=== PATIENT | male | born 1970 | race Caucasian/White ===

== ENCOUNTER 2019-01-26 23:18 | Inpatient (IN) | payer BC ==
--- NOTE | 2019-01-27 00:33 | C.PDOC ---
History Of Present Illness Patient presents with sudden onset right flank pain radiating to the back and groin. Denies fever, chills, nausea, or vomiting. Patient was diaphoretic at first. Time Seen by Provider: 01/27/19 00:32 Chief Complaint (Nursing): Chest Pain History Per: Patient History/Exam Limitations: no limitations Onset/Duration Of Symptoms: Hrs, Sudden Onset Current Symptoms Are (Timing): Still Present Severity: Severe Pain Scale Rating Of: 8 Quality: Sharp Associated Symptoms: Diaphoresis Modifying Factors: None Exacerbating Factors: None Alleviating Factors: None Recent travel outside of the [place] States: No Additional History Per: Family Past Medical History Reviewed: Historical Data, Nursing Documentation, Vital Signs Vital Signs: Last Vital Signs Temp 97.6 F 01/26/19 23:42 Pulse 61 01/26/19 23:54 Resp 22 01/26/19 23:42 BP 104/64 01/26/19 23:54 Pulse Ox 98 01/26/19 23:42 Family History: States: No Known Family Hx - Social History Hx Alcohol Use: No Hx Substance Use: No - Immunization History Hx Tetanus Toxoid Vaccination: No Hx Influenza Vaccination: No Hx Pneumococcal Vaccination: No Review Of Systems Constitutional: Positive for: Sweats. Negative for: Fever, Chills Cardiovascular: Negative for: Chest Pain, Palpitations Respiratory: Negative for: Cough, Shortness of Breath Gastrointestinal: Negative for: Nausea, Vomiting Genitourinary: Negative for: Dysuria Musculoskeletal: Positive for: Other (Right flank pain) Skin: Negative for: Rash, Jaundice Neurological: Negative for: Weakness, Numbness Psych: Negative for: Anxiety Physical Exam - Physical Exam Appears: Non-toxic Skin: Warm, Dry, No Jaundice Head: Normacephalic Eye(s): bilateral: Normal Inspection Oral Mucosa: Moist Neck: Trachea Midline, Supple Chest: Symmetrical, No Tenderness Cardiovascular: Rhythm Regular Respiratory: No Rales, No Rhonchi, No Wheezing Gastrointestinal/Abdominal: Soft, Tenderness (RUQ), No Guarding, No Rebound Back: CVA Tenderness (Right) Extremity: No Tenderness Extremity: Bilateral: Atraumatic Neurological/Psych: Oriented x3 Gait: Steady ED Course And Treatment - Laboratory Results Result Diagrams: 01/27/19 01:08 01/27/19 01:08 ECG: Interpreted By Me, Viewed By Me ECG Rhythm: Sinus Rhythm (60), Nonspecific Changes O2 Sat by Pulse Oximetry: 98 Pulse Ox Interpretation: Normal - Radiology CXR: Interpreted by Me, Viewed By Me Progress Note: Patient feels comfortable after pain meds. spoke with surgery - will come and see the pt Disposition Discussed With DrYobani: Elaine Keenan Comment: accepted the pt on his service and took over the care at 2:51 AM Doctor Will See Patient In The: ED Counseled Patient/Family Regarding: Studies Performed, Diagnosis - Disposition Disposition: HOSPITALIZED Disposition Time: 02:51 Condition: FAIR Forms: [facility] (Armenian) - POA Present On Arrival: None - Clinical Impression Clinical Impression: Acute cholecystitis - Scribe Statement The provider has reviewed the documentation as recorded by the Scribshoaib Louis All medical record entries made by the Scribe were at my direction and personally dictated by me. I have reviewed the chart and agree that the record accurately reflects my personal performance of the history, physical exam, medical decision making, and the department course for this patient. I have also personally directed, reviewed, and agree with the discharge instructions and disposition. Decision To Admit - Pt Status Changed To: Hospital Disposition Of: Inpatient - Admit Certification Admit to Inpatient:: After my assessment, the patient will require hospitalization for at least two midnights. This is because of the severity of symptoms shown, intensity of services needed, and/or the medical risk in this patient being treated as an outpatient. - InPatient: Physician Admission Certification: I certify that this patient requires 2 or more midnights of care for the following reason:: After my assessment, the patient will require hospitalization for at least two midnights. This is because of the severity of symptoms shown, intensity of services needed, and/or the medical risk in this patient being treated as an outpatient. - . Bed Request Type: Regular Admitting Physician: Elaine Keenan Patient Diagnosis: Acute cholecystitis
[2019-01-27] MEDS ORDERED: Lidocaine 112 MG in Sodium Chloride 0.9% 100 ML IV STA (00:37)
[2019-01-27 01:17] LABS: BASO # 0.1 K/uL (0.0-0.2); BASO % 0.5 % (0.0-2.0); EOS # 0.2 K/uL (0.0-0.7); HEMOGLOBIN 15.5 g/dL (12.0-18.0); LYMPH # 4.1 K/uL (1.0-4.3); LYMPH % 35.3 % (20.0-40.0); MEAN CELL VOLUME 89.4 fL (80.0-94.0); MEAN CORPUSCULAR HEMOGLOBIN 30.1 pg (27.0-31.0); MEAN CORPUSCULAR HGB CONC 33.6 g/dL (33.0-37.0); MONO # 0.6 K/uL (0.0-0.8); MONO % 5.4 % (0.0-10.0); NEUT # 6.5 K/uL (1.8-7.0); NEUT % 56.8 % (50.0-75.0); NRBC % 0.1 % (0.0-2.0); RBC 5.15 Mil/uL (4.40-5.90); RED CELL DISTRIBUTION WIDTH 13.2 % (11.5-14.5); WHITE BLOOD COUNT 11.5 K/uL (4.8-10.8)
[2019-01-27 01:33] LABS: ALB/GLOB RATIO 1.4 (1.0-2.1); ALBUMIN 4.4 g/dL (3.5-5.0); ALT/SGPT 28 U/L (21-72); AST/SGOT 45 U/L (17-59); BLOOD UREA NITROGEN 15 mg/dL (9-20); CALCIUM 9.7 mg/dl (8.6-10.4); GFR NON-AFRICAN AMERICAN > 60; LIPASE 150 U/L (23-300)
[2019-01-27] MEDS ORDERED: Piperacillin/Tazobact 3.375 gm 100 ML IVPB STA (02:52)
[2019-01-27] MEDS ORDERED: Piperacillin/Tazobact 3.375 gm 100 ML IVPB ONE (03:03)
[2019-01-27] MEDS ORDERED: Potassium Chloride 10 mEq ER Tab PO STA (03:33)
[2019-01-27] MEDS ORDERED: Potassium Chloride 20 mEq ER Tab PO ONE (03:39)
[2019-01-27] MEDS ORDERED: HYDROmorphone 0.5 mg/0.5 ml ISec IVP PRN (04:42)
--- NOTE | 2019-01-27 04:50 | CP.PCM.CON ---
<Coy Thomas - Last Filed: 01/27/19 08:28> History of Present Illness - History of Present Illness History of Present Illness: Surgery Consult Note- Dr. Bullard Reason for Consult: Acute Cholecystitis 48M pmhx significant for nephrolithiasis,, HLD presents to [facility] [place] ED w/ Intermitted RUQ abdominal pain radiating to the back over the last year. overnight patient had severe pain that would not subside and subsequently went to the ER. during workup patient was found to have a stone in the distal CBD. States associated nausea, diaphoresis, chills. Denies vomiting, changes in urinary or bowel habits. PMH: stated above PSH: Jos Munoz Surgery ALL: NKDA SocialHx: denies tobacco, etoh , recreational drug use Review of Systems - Review of Systems All systems: reviewed and no additional remarkable complaints except - Constitutional Constitutional: As Per HPI Past Patient History - Past Medical History & Family History Past Medical History?: Yes - Past Social History Smoking Status: Never Smoked - CARDIAC Hx Hypercholesterolemia: Yes - MUSCULOSKELETAL/RHEUMATOLOGICAL Hx Falls: No - PSYCHIATRIC Hx Substance Use: No - SURGICAL HISTORY Hx Surgeries: No - ANESTHESIA Hx Anesthesia: No Hx Anesthesia Reactions: No Hx Malignant Hyperthermia: No Has any member of the family had a problem w/ anesthesia?: No Meds Allergies/Adverse Reactions: Allergies Allergy/AdvReac Type Severity Reaction Status Date / Time ibuprofen Allergy Mild Verified 01/26/19 23:47 Physical Exam - Constitutional Appears: Non-toxic, No Acute Distress - Head Exam Head Exam: ATRAUMATIC - Eye Exam Eye Exam: EOMI. absent: Scleral icterus - ENT Exam ENT Exam: Mucous Membranes Moist - Respiratory Exam Respiratory Exam: NORMAL BREATHING PATTERN. absent: Accessory Muscle Use, Respiratory Distress - Cardiovascular Exam Cardiovascular Exam: REGULAR RHYTHM. absent: Bradycardia, Tachycardia - GI/Abdominal Exam GI & Abdominal Exam: Soft, Tenderness (TTP RUQ. + Fowler's sign). absent: Distended, Firm, Guarding, Hernia - Back Exam Back exam: absent: CVA tenderness (L) - Neurological Exam Neurological exam: Alert, Oriented x3 - Psychiatric Exam Psychiatric exam: Normal Affect - Skin Skin Exam: Intact, Warm Results - Vital Signs Recent Vital Signs: Last Vital Signs Temp 97.9 F 01/27/19 03:37 Pulse 67 01/27/19 03:37 Resp 18 01/27/19 03:37 BP 113/68 01/27/19 03:37 Pulse Ox 98 01/27/19 03:37 - Labs Result Diagrams: 01/27/19 01:08 01/27/19 01:08 Labs: Laboratory Results - last 24 hr 01/27/19 01/27/19 01:08 01:08 WBC 11.5 H RBC 5.15 Hgb 15.5 Hct 46.1 MCV 89.4 MCH 30.1 MCHC 33.6 RDW 13.2 Plt Count 260 MPV 8.0 Neut % (Auto) 56.8 Lymph % (Auto) 35.3 Bartholomew % (Auto) 5.4 Eos % (Auto) 2.0 Baso % (Auto) 0.5 Neut # (Auto) 6.5 Lymph # (Auto) 4.1 Bartholomew # (Auto) 0.6 Eos # (Auto) 0.2 Baso # (Auto) 0.1 Sodium 140 Potassium 3.3 L Chloride 102 Carbon Dioxide 27 Anion Gap 14 BUN 15 Creatinine 0.9 Est GFR ( Amer) > 60 Est GFR (Non-Af Amer) > 60 Random Glucose 125 H Calcium 9.7 Total Bilirubin 0.5 AST 45 ALT 28 Alkaline Phosphatase 76 Total Protein 7.5 Albumin 4.4 Globulin 3.0 Albumin/Globulin Ratio 1.4 Lipase 150 Assessment & Plan - Assessment and Plan (Free Text) Assessment: 48M w/ Choledocholithiasis Plan: - IVAbx - NPO - IVF - pain control PRN - c/s GI; all recs appreciated - plan for Ultrasound MRCP - further recs per Dr. Juan Miguel Thomas PGY2 <Glenn Bullard B - Last Filed: 02/01/19 18:17> Meds - Medications Medications: Current Medications Acetaminophen (Tylenol 325mg Tab) 650 mg PO Q6 PRN PRN Reason: Fever >100.4 F Hydromorphone HCl (Dilaudid) 0.5 mg IVP Q4H PRN PRN Reason: Pain, moderate (4-7) Meropenem 1 gm/ Sodium (Chloride) 100 mls @ 100 mls/hr IVPB Q8H [facility]; Protocol Last Admin: 02/01/19 15:31 Dose: 100 mls/hr Lactated Ringer's (Lactated Ringer's) 1,000 mls @ 100 mls/hr IV .Q10H [facility] Last Admin: 02/01/19 14:39 Dose: Not Given Ondansetron HCl (Zofran Inj) 4 mg IVP Q6H PRN PRN Reason: Nausea/Vomiting Last Admin: 01/27/19 17:09 Dose: 4 mg Potassium Chloride (Klor-Con 10) 20 meq PO ONCE PRN PRN Reason: low K Last Admin: 02/01/19 15:07 Dose: 20 meq Saccharomyces Boulardii (Florastor) 250 mg PO BID STEVIE Last Admin: 02/01/19 17:16 Dose: 250 mg Results - Vital Signs Recent Vital Signs: Last Vital Signs Temp 98.6 F 02/01/19 15:00 Pulse 77 02/01/19 15:00 Resp 20 02/01/19 15:00 BP 138/86 02/01/19 15:00 Pulse Ox 96 02/01/19 15:00 - Labs Result Diagrams: 02/01/19 08:52 02/01/19 08:52 Labs: Laboratory Results - last 24 hr 02/01/19 02/01/19 08:52 08:52 WBC 7.2 RBC 4.99 Hgb 14.8 Hct 44.9 MCV 90.0 MCH 29.7 MCHC 33.0 RDW 13.6 Plt Count 260 MPV 7.8 Neut % (Auto) 70.7 Lymph % (Auto) 23.1 Bartholomew % (Auto) 5.1 Eos % (Auto) 0.6 Baso % (Auto) 0.5 Neut # (Auto) 5.1 Lymph # (Auto) 1.7 Bartholomew # (Auto) 0.4 Eos # (Auto) 0.0 Baso # (Auto) 0.0 Sodium 138 Potassium 3.5 L Chloride 102 Carbon Dioxide 25 Anion Gap 14 BUN 10 Creatinine 0.7 L Est GFR ( Amer) > 60 Est GFR (Non-Af Amer) > 60 Random Glucose 181 H D Calcium 9.1 Phosphorus 2.4 L Magnesium 2.1 Total Bilirubin 2.1 H AST 136 H D ALT 376 H Alkaline Phosphatase 159 H Total Protein 7.2 Albumin 4.3 Globulin 2.9 Albumin/Globulin Ratio 1.5 Attending/Attestation - Attestation I have personally seen and examined this patient.: Yes I have fully participated in the care of the patient.: Yes I have reviewed all pertinent clinical information: Yes Notes (Text): Pt was seen and examined at bedside Agree with above note and assessment Pt with Abdominal Pain and nausea Abdomen: Soft, NT, ND Pt is s/p ERCP today for CBD stone Labs and radiology reviewed Ass: Cholelithiasis with CBD stone Plan : Repeat LFTS in am NPO, IVF c.w current mx IV antibiotics Plan d.w pt in detail Risk and benefit explained in detail.
[2019-01-27] MEDS: Piperacillin/Tazobact 3.375 GM in Sodium Chloride 100 ML IVPB SCH ×4 (05:46→21:48)
--- NOTE | 2019-01-27 08:41 | CP.PCM.CON ---
<Irma Keenan - Last Filed: 01/27/19 08:33> History of Present Illness - History of Present Illness History of Present Illness: PGY5 GI Initial Consult Lewis Preston is a 48M w/ hx of HL who presents to the ER with complaints of RUQ and right flank pain. Pt states that he has been having infrequent RUQ and right flank pain for 1 year. Previously the episodes were short lived and less painful. He states that the duration prior to this episode was usually less than an hour. He notes that his pain prior to arrival at the Ed was 9 out of 10. He denies any aggravating or alleviating factors. He denies any nausea or vomiting. Denies any fever, chill, diaphoresis, or jaundice. No recent weightloss or travel. Pt notes having a colonoscopy 6 years prior but does not recall indication or findings. CT in the ER revealed possible ~7.6 obstructing distal CBD stone. PMHx:HL PSHx: right bunion Social Hx: Denies smoking, illicit drugsl social ETOH Family hx: Denies any hx of GI related malig ROS: 12 point ROS conducted, neg other than above Past Patient History - Past Medical History & Family History Past Medical History?: Yes - Past Social History Smoking Status: Never Smoked - CARDIAC Hx Hypercholesterolemia: Yes - MUSCULOSKELETAL/RHEUMATOLOGICAL Hx Falls: No - PSYCHIATRIC Hx Substance Use: No - SURGICAL HISTORY Hx Surgeries: No - ANESTHESIA Hx Anesthesia: No Hx Anesthesia Reactions: No Hx Malignant Hyperthermia: No Has any member of the family had a problem w/ anesthesia?: No Meds Allergies/Adverse Reactions: Allergies Allergy/AdvReac Type Severity Reaction Status Date / Time ibuprofen Allergy Mild Verified 01/26/19 23:47 - Medications Medications: Current Medications Acetaminophen (Tylenol 325mg Tab) 650 mg PO Q6 PRN PRN Reason: Fever >100.4 F Hydromorphone HCl (Dilaudid) 0.5 mg IVP Q4H PRN PRN Reason: Pain, moderate (4-7) Piperacillin Sod/Tazobactam (Sod 3.375 gm/ Sodium Chloride) 100 mls @ 200 mls/hr IVPB Q6H [facility]; Protocol Last Admin: 01/27/19 05:46 Dose: Not Given Physical Exam - Constitutional Appears: Non-toxic, No Acute Distress - Head Exam Head Exam: ATRAUMATIC, NORMOCEPHALIC - Eye Exam Eye Exam: Normal appearance - ENT Exam ENT Exam: Mucous Membranes Moist, Normal Exam - Neck Exam Neck exam: Positive for: Normal Inspection - Respiratory Exam Respiratory Exam: Clear to Auscultation Bilateral, NORMAL BREATHING PATTERN. absent: Rales, Rhonchi, Wheezes, Respiratory Distress - Cardiovascular Exam Cardiovascular Exam: REGULAR RHYTHM, +S1, +S2 - GI/Abdominal Exam GI & Abdominal Exam: Normal Bowel Sounds, Soft, Tenderness (right RUQ and fl ank). absent: Diminished Bowel Sounds, Distended, Firm, Guarding, Hernia, Rebound, Rigid - Neurological Exam Neurological exam: Alert, Oriented x3 - Psychiatric Exam Psychiatric exam: Normal Affect, Normal Mood - Skin Skin Exam: Dry, Intact, Normal Color, Warm Results - Vital Signs Recent Vital Signs: Last Vital Signs Temp 98.0 F 01/27/19 07:10 Pulse 75 01/27/19 07:10 Resp 20 01/27/19 07:10 BP 144/78 01/27/19 07:10 Pulse Ox 97 01/27/19 07:10 - Labs Result Diagrams: 01/27/19 01:08 01/27/19 01:08 Labs: Laboratory Results - last 24 hr 01/27/19 01/27/19 01/27/19 01:08 01:08 07:11 WBC 11.5 H RBC 5.15 Hgb 15.5 Hct 46.1 MCV 89.4 MCH 30.1 MCHC 33.6 RDW 13.2 Plt Count 260 MPV 8.0 Neut % (Auto) 56.8 Lymph % (Auto) 35.3 [place] % (Auto) 5.4 Eos % (Auto) 2.0 Baso % (Auto) 0.5 Neut # (Auto) 6.5 Lymph # (Auto) 4.1 [place] # (Auto) 0.6 Eos # (Auto) 0.2 Baso # (Auto) 0.1 PT 11.0 INR 1.0 APTT 32 Sodium 140 Potassium 3.3 L Chloride 102 Carbon Dioxide 27 Anion Gap 14 BUN 15 Creatinine 0.9 Est GFR ( Amer) > 60 Est GFR (Non-Af Amer) > 60 Random Glucose 125 H Calcium 9.7 Total Bilirubin 0.5 AST 45 ALT 28 Alkaline Phosphatase 76 Total Protein 7.5 Albumin 4.4 Globulin 3.0 Albumin/Globulin Ratio 1.4 Lipase 150 Assessment & Plan - Assessment and Plan (Free Text) Assessment: Lewis Preston is a 48M w/ hx of HL who presents with RUQ and right flank pain: CT abd revealed possible distal CBD stone ~7.6mm Acute Cholecystitis Questionable obstructive CBD stone Biliary colic? hx of HL Plan: -recommend U/S at this time -MRCP pending -LFTs are WNL -continue zosyn 3.375g q 6hrs -blood cultures pending -surgery on board -will determine need for ERCP based on MRCP findings -NPO for now, after MRCP can start clears if pt is asymptomatic D/W Dr. Madden <Robert Madden - Last Filed: 01/27/19 11:26> Meds - Medications Medications: Current Medications Acetaminophen (Tylenol 325mg Tab) 650 mg PO Q6 PRN PRN Reason: Fever >100.4 F Hydromorphone HCl (Dilaudid) 0.5 mg IVP Q4H PRN PRN Reason: Pain, moderate (4-7) Piperacillin Sod/Tazobactam (Sod 3.375 gm/ Sodium Chloride) 100 mls @ 200 mls/hr IVPB Q6H [facility]; Protocol Last Admin: 01/27/19 11:07 Dose: 200 mls/hr Results - Vital Signs Recent Vital Signs: Last Vital Signs Temp 98.0 F 01/27/19 07:10 Pulse 75 01/27/19 07:10 Resp 20 01/27/19 07:10 BP 144/78 01/27/19 07:10 Pulse Ox 97 01/27/19 07:10 - Labs Result Diagrams: 01/27/19 01:08 01/27/19 01:08 Labs: Laboratory Results - last 24 hr 01/27/19 01/27/19 01/27/19 01:08 01:08 07:11 WBC 11.5 H RBC 5.15 Hgb 15.5 Hct 46.1 MCV 89.4 MCH 30.1 MCHC 33.6 RDW 13.2 Plt Count 260 MPV 8.0 Neut % (Auto) 56.8 Lymph % (Auto) 35.3 [place] % (Auto) 5.4 Eos % (Auto) 2.0 Baso % (Auto) 0.5 Neut # (Auto) 6.5 Lymph # (Auto) 4.1 [place] # (Auto) 0.6 Eos # (Auto) 0.2 Baso # (Auto) 0.1 PT 11.0 INR 1.0 APTT 32 Sodium 140 Potassium 3.3 L Chloride 102 Carbon Dioxide 27 Anion Gap 14 BUN 15 Creatinine 0.9 Est GFR ( Amer) > 60 Est GFR (Non-Af Amer) > 60 Random Glucose 125 H Calcium 9.7 Total Bilirubin 0.5 AST 45 ALT 28 Alkaline Phosphatase 76 Total Protein 7.5 Albumin 4.4 Globulin 3.0 Albumin/Globulin Ratio 1.4 Lipase 150 Attending/Attestation - Attestation I have personally seen and examined this patient.: Yes I have fully participated in the care of the patient.: Yes I have reviewed all pertinent clinical information: Yes Notes (Text): 01/27/19 11:22 I have seen and examined patient with GI fellow. Agree with above documentation with the following additions. In brief, this is a 48 year old male with history of hyperlipidemia who presents to hospital with complaint of progressive abdominal pain. He reports intermittent right sided abdominal pain for the past one year which has gotten worse over the past 3 days. He describes a sharp RUQ, 9/10 intensity pain that radiates to back and is worse after meal consumption. He otherwise denies nausea, vomiting, fever/chills, weight loss, rectal bleeding, jaundice, pruritis, or change in bowel habits. He had a colonoscopy 6 years ago which was apparently normal as per patient. Additional physical exam: Abdomen: no palpable hepato/splenomegaly Hyperlipidemia Abdominal pain Abdominal US and CT imaging reviewed by me showing multiple subcentimeter GB polyps, mild dilation of CBD, thickened GB wall, questionable 7 mm calculus seen in distal CBD - Liquid diet as tolerated - LFTs normal, continue to monitor - Would obtain MRCP for further evaluation given questionable distal CBD calculus - Continue with antibiotic therapy, follow up blood cultures - Follow up surgical recommendations - Further GI recommendations including potential endoscopic intervention following MRCP results, will continue to monitor patient clinical course
--- NOTE | 2019-01-27 08:56 | US ---
Date of service: 01/27/2019 HISTORY: r/o Acute [place] vs Choledocho COMPARISON: CT abdomen and pelvis 01/27/2019 TECHNIQUE: Sonographic evaluation of the abdomen. FINDINGS: LIVER: Measures 14.5 cm. Mild diffuse increased echogenicity of the liver parenchyma. CT depicted hypodense mass in the superior right hepatic lobe near the dome visualized on this exam. No intrahepatic bile duct dilatation. GALLBLADDER: No gallstones within the gallbladder are present. There are several gallbladder polyps nonshadowing suggested measuring 3 to 5 mm in size.. Gallbladder wall is thickened--measuring approximately a 6 to 7 mm in thickness. No positive ultrasound Fowler sign noted. COMMON BILE DUCT: Measures 6.8 to 7.0 mm. The typical mean diameter is approximately 4.1 mm. However in this case this patient's common bile duct is still within the upper limits of normal. Which is considered 7 to 8 mm. Note is made that the patient has a recent CT depiction of a large calculus approximately 7 mm in the most distal common bile duct near the pancreatic head/uncinate process. This calculus in this not clearly identified on this ultrasound exam-images of the pancreatic head are obscured by bowel gas. Also noted is the absence of any gall stones appreciated within the gallbladder proper in this patient. There were gallbladder polyps however noted. PANCREAS: Limited visualization. Due to obscuring bowel gas. RIGHT KIDNEY: Measures 11.3 x 4.7 x 5.6cm. Normal echogenicity. No calculus, mass, or hydronephrosis. LEFT KIDNEY: Measures 10.9 x 6.2 x 5.3cm. Normal echogenicity. No calculus, mass, or hydronephrosis. SPLEEN: Normal in size and contour. No mass. AORTA: No aneurysmal dilatation. IVC: Unremarkable. OTHER FINDINGS: None. IMPRESSION: The CT depiction of a large approximately 7 mm calculus in the most distal common bile duct region is not visualized focus/depicted on this ultrasound image. At this pancreatic head and most distal common bile duct obscuring bowel gas is present. The common bile duct caliber on this exam is borderline prominent as referenced above. It is unknown if this is an interval change for this patient. There are no gallstones within the gallbladder proper in this patient-which is not typical. There are however multiple nonshadowing gallbladder polyps present. No positive ultrasound Fowler sign seen. The gallbladder wall is thickened-compatible with both acute and/or chronic inflammatory changes. Close continued follow-up is recommended. Comments: Study marked for PA review .
--- NOTE | 2019-01-27 09:55 | CT ---
CT abdomen and pelvis HISTORY: Right flank pain. COMPARISON: None available. Technique: Multiple contiguous axial images were performed through the abdomen and pelvis without the use of intravenous contrast. Subsequently, sagittal and coronal reformatted images were obtained. This CT exam was performed using one or more of the following dose reduction techniques: Automated exposure control, adjustment of the mA and/or kV according to patient size, and/or use of iterative reconstruction technique. Findings: Scattered atelectasis at the lung bases. More focal nodular consolidation within the medial right middle lobe. Coronary calcifications. No pleural or pericardial effusion. 8 millimeter hypodensity in the high right hepatic lobe on series 3, image 20, too small to adequately characterize. Distended gallbladder with mural thickening and mild surrounding inflammatory fat stranding. These changes may represent an acute cholecystitis. Clinical correlation. Large 8 millimeter calculus seen at the most distal aspect of the common bile duct near the uncinate process. Clinical correlation. Dilated common bile duct measuring up to 9 millimeters. Spleen is preserved. Adrenal glands are preserved. Pancreas is grossly preserved. Distended stomach with food substance. Right kidney: No gross calculi or hydronephrosis. Left Kidney: No gross calculi or hydronephrosis. Urinary bladder is preserved. Prominent prostate measuring up to 5.7 centimeters. Colonic diverticuli. Moderate fecal retention in the colon. Appendix is within normal limits. Few shotty para-aortic and inguinal lymph nodes. Atherosclerotic calcification and plaque in the aorta. Degenerative changes in the spine. Bone island in the posterior left iliac bone. Impression: 1. Large 8 millimeter calculus seen at the most distal aspect of the common bile duct near the uncinate process. Clinical correlation. Dilated common bile duct measuring up to 9 millimeters. 2. Distended gallbladder with mural thickening and mild surrounding inflammatory fat stranding. These changes may represent an acute cholecystitis. Clinical correlation. 3. Prominent prostate measuring up to 5.7 centimeters. Additional findings as above. A preliminary report was generated at 2:26 a.m. on 01/27/[address] Steffany Teague from [employer].
--- NOTE | 2019-01-27 10:08 | CP.PCM.HP ---
Present on Admission - Present on Admission Any Indicators Present on Admission: No Past Patient History - Past Medical History & Family History Past Medical History?: Yes - Past Social History Smoking Status: Never Smoked - CARDIAC Hx Hypercholesterolemia: Yes - MUSCULOSKELETAL/RHEUMATOLOGICAL Hx Falls: No - PSYCHIATRIC Hx Substance Use: No - SURGICAL HISTORY Hx Surgeries: No - ANESTHESIA Hx Anesthesia: No Hx Anesthesia Reactions: No Hx Malignant Hyperthermia: No Has any member of the family had a problem w/ anesthesia?: No Meds Allergies/Adverse Reactions: Allergies Allergy/AdvReac Type Severity Reaction Status Date / Time ibuprofen Allergy Mild Verified 01/26/19 23:47 Physical Exam - Constitutional Appears: Well - Head Exam Head Exam: ATRAUMATIC, NORMAL INSPECTION, NORMOCEPHALIC - Eye Exam Eye Exam: EOMI, Normal appearance, PERRL Pupil Exam: NORMAL ACCOMODATION, PERRL - ENT Exam ENT Exam: Mucous Membranes Moist, Normal Exam - Neck Exam Neck exam: Positive for: Normal Inspection - Respiratory Exam Respiratory Exam: Decreased Breath Sounds - Cardiovascular Exam Cardiovascular Exam: REGULAR RHYTHM, +S1, +S2 - GI/Abdominal Exam GI & Abdominal Exam: Diminished Bowel Sounds, Soft - Rectal Exam Rectal Exam: Deferred - Neurological Exam Neurological exam: Oriented x3 Results - Vital Signs Recent Vital Signs: Last Vital Signs Temp 98.0 F 01/27/19 07:10 Pulse 75 01/27/19 07:10 Resp 20 01/27/19 07:10 BP 144/78 01/27/19 07:10 Pulse Ox 97 01/27/19 07:10 - Labs Result Diagrams: 01/27/19 01:08 01/27/19 11:25 Labs: Laboratory Results - last 24 hr 01/27/19 01/27/19 01/27/19 01:08 01:08 07:11 WBC 11.5 H RBC 5.15 Hgb 15.5 Hct 46.1 MCV 89.4 MCH 30.1 MCHC 33.6 RDW 13.2 Plt Count 260 MPV 8.0 Neut % (Auto) 56.8 Lymph % (Auto) 35.3 [place] % (Auto) 5.4 Eos % (Auto) 2.0 Baso % (Auto) 0.5 Neut # (Auto) 6.5 Lymph # (Auto) 4.1 [place] # (Auto) 0.6 Eos # (Auto) 0.2 Baso # (Auto) 0.1 PT 11.0 INR 1.0 APTT 32 Sodium 140 Potassium 3.3 L Chloride 102 Carbon Dioxide 27 Anion Gap 14 BUN 15 Creatinine 0.9 Est GFR ( Amer) > 60 Est GFR (Non-Af Amer) > 60 Random Glucose 125 H Calcium 9.7 Total Bilirubin 0.5 AST 45 ALT 28 Alkaline Phosphatase 76 Total Protein 7.5 Albumin 4.4 Globulin 3.0 Albumin/Globulin Ratio 1.4 Lipase 150 Assessment & Plan - Assessment and Plan (Free Text) Plan: Surgical consult GI consult Dilaudid as needed for pain KCl IV Zosyn Tylenol For MRCP today Abdominal sonogram reveals no gallstones within the gallbladder there are several gallbladder polyps nonshadowing suggesting meds measuring 3-5 mm in size gallbladder wall is thickened Abdominal CAT scan which reveals large 8 mm calculus in the most distal aspect of the common bile duct Distended gallbladder with mural thickening and mild surrounding inflammatory fat stranding suggestive of acute cholecystitis
[2019-01-27 11:44] LABS: BLOOD UREA NITROGEN 13 mg/dL (9-20); GFR NON-AFRICAN AMERICAN > 60
[2019-01-27 12:11] LABS: URINE AMORPHOUS SEDIMENT RARE /ul (<OCC)
[2019-01-27 12:15] LABS: URINE CLARITY Clear (Clear); URINE COLOR YELLOW (YELLOW); URINE GLUCOSE (UA) NEGATIVE (Normal)
[2019-01-27 12:16] LABS: URINE BILIRUBIN NEGATIVE (NEGATIVE); URINE BLOOD NEGATIVE (NEGATIVE); URINE LEUKOCYTE ESTERASE NEGATIVE Leu/uL (Negative); URINE PROTEIN NEGATIVE (NEGATIVE); URINE UROBILINOGEN 0.2 mg/dL (0.2-1.0)
--- NOTE | 2019-01-27 13:33 | MRI ---
Date of service: 01/27/2019 PROCEDURE: Magnetic Resonance Cholangiopancreatography HISTORY: COMPARISON: None available. TECHNIQUE: Multiplanar, multisequence MR images of the abdomen were obtained, including heavily T2 weighted MRCP images of the biliary system. Rotating maximum intensity projection images of the biliary system were generated. FINDINGS: MRCP: The common bile duct is of a normal caliber. No evidence of choledocholithiasis. No intrahepatic biliary ductal dilatation. LIVER: Unremarkable. GALLBLADDER: 5 millimeter stone within the distal common bile duct with mild extrahepatic biliary dilatation measuring up to 7 millimeters. SPLEEN: Unremarkable. PANCREAS: Unremarkable. ADRENALS: Unremarkable. KIDNEYS: Unremarkable. AORTA: No aneurysm. ASCITES: None. OTHER FINDINGS: None. IMPRESSION: 5 millimeter stone within the distal common bile duct with mild extrahepatic biliary dilatation measuring up to 7 millimeters.
[2019-01-27] MEDS ORDERED: Indomethacin 50 MG Suppository PR ONE ×2 (13:53→13:55)
[2019-01-27] MEDS ORDERED: Iohexol 240 (50 ml) ONE (13:56)
[2019-01-27] MEDS ORDERED: Midazolam 2 MG/2 ML VIAL ONE (14:00)
[2019-01-27] MEDS ORDERED: Propofol 10 mg/ml Inj (20 ML) ONE (14:00)
[2019-01-27] MEDS ORDERED: Succinylcholine Chloride 20 mg/ml Syr (5 ml) IV ONE (14:05)
[2019-01-27] MEDS ORDERED: Lactated Ringer's 1,000 ML IV ONE (14:17)
--- NOTE | 2019-01-27 17:54 | RAD ---
Date of service: 01/27/2019 HISTORY: pre-op COMPARISON: No prior. FINDINGS: LUNGS: No active pulmonary disease. PLEURA: No significant pleural effusion identified, no pneumothorax apparent. CARDIOVASCULAR: No atherosclerotic calcification present Normal. OSSEOUS STRUCTURES: No significant abnormalities. VISUALIZED UPPER ABDOMEN: Normal. OTHER FINDINGS: None. IMPRESSION: No active disease.
--- NOTE | 2019-01-27 18:02 | RAD ---
Date of service: 01/27/2019 PROCEDURE: Intraoperative Fluoroscopy. HISTORY: CHOLELITHIASIS FINDINGS: Fluoroscopic assistance was provided for ERCP. Please refer to the operative report from PAYAM Gonzalez. Total fluoroscopic time (continuous mode) utilized during the procedure 203.6 seconds. Total exam DLP: 1.38 (mGy).
[2019-01-28] MEDS: Piperacillin/Tazobact 3.375 GM in Sodium Chloride 100 ML IVPB SCH ×4 (04:31→21:45)
[2019-01-28 07:45] LABS: BASO % 0.1 % (0.0-2.0); HEMOGLOBIN 15.1 g/dL (12.0-18.0); MEAN CELL VOLUME 89.2 fL (80.0-94.0); MEAN CORPUSCULAR HEMOGLOBIN 29.9 pg (27.0-31.0); MEAN CORPUSCULAR HGB CONC 33.6 g/dL (33.0-37.0); MEAN PLATELET VOLUME 8.3 fL (7.2-11.7); MONO # 0.6 K/uL (0.0-0.8); MONO % 7.2 % (0.0-10.0); NEUT # 6.3 K/uL (1.8-7.0); NEUT % 79.7 % (50.0-75.0); RBC 5.04 Mil/uL (4.40-5.90); RED CELL DISTRIBUTION WIDTH 13.5 % (11.5-14.5); WHITE BLOOD COUNT 7.9 K/uL (4.8-10.8)
[2019-01-28 07:49] LABS: PROTHROMBIN TIME 11.4 SECONDS (9.7-12.2)
[2019-01-28 08:34] LABS: ALB/GLOB RATIO 1.5 (1.0-2.1); ALBUMIN 4.3 g/dL (3.5-5.0); ALT/SGPT 627 U/L (21-72); AST/SGOT 348 U/L (17-59); BLOOD UREA NITROGEN 10 mg/dL (9-20); CALCIUM 9.4 mg/dl (8.6-10.4); GFR NON-AFRICAN AMERICAN > 60; LIPASE 76 U/L (23-300)
--- NOTE | 2019-01-28 09:44 | CP.PCM.PN ---
<Irma Keenan - Last Filed: 01/28/19 09:44> Subjective - Date & Time of Evaluation Date of Evaluation: 01/28/19 Time of Evaluation: 07:00 - Subjective Subjective: PGY5 GI Follow-up Pt seen and examined bedside Denies any abd pain tolerated liquid diet yesterday NPO since last night, for possible lap emily today denies any fever, chills or diaphoresis ROS: 12 point ROS conducted, neg other than above Objective - Vital Signs/Intake and Output Vital Signs (last 24 hours): Temp Pulse Resp BP Pulse Ox 98.3 F 83 20 150/92 H 96 01/28/19 07:00 01/28/19 07:00 01/28/19 07:00 01/28/19 07:00 01/28/19 07:00 Intake and Output: 01/28/19 01/28/19 06:59 18:59 Intake Total 780 Balance 780 - Medications Medications: Current Medications Acetaminophen (Tylenol 325mg Tab) 650 mg PO Q6 PRN PRN Reason: Fever >100.4 F Hydromorphone HCl (Dilaudid) 0.5 mg IVP Q4H PRN PRN Reason: Pain, moderate (4-7) Piperacillin Sod/Tazobactam (Sod 3.375 gm/ Sodium Chloride) 100 mls @ 200 mls/hr IVPB Q6H [facility]; Protocol Last Admin: 01/28/19 04:31 Dose: 200 mls/hr Ondansetron HCl (Zofran Inj) 4 mg IVP Q6H PRN PRN Reason: Nausea/Vomiting Last Admin: 01/27/19 17:09 Dose: 4 mg - Labs Labs: 01/28/19 07:25 01/28/19 07:25 PT 11.4 SECONDS (9.7-12.2) 01/28/19 07:25 INR 1.0 01/28/19 07:25 APTT 32 SECONDS (21-34) 01/28/19 07:25 - Constitutional Appears: Non-toxic, No Acute Distress - Head Exam Head Exam: ATRAUMATIC, NORMOCEPHALIC - Eye Exam Eye Exam: Normal appearance - ENT Exam ENT Exam: Mucous Membranes Moist, Normal Exam - Neck Exam Neck Exam: Normal Inspection - Respiratory Exam Respiratory Exam: Clear to Ausculation Bilateral, NORMAL BREATHING PATTERN. absent: Rales, Rhonchi, Wheezes, Respiratory Distress - Cardiovascular Exam Cardiovascular Exam: REGULAR RHYTHM, +S1, +S2 - GI/Abdominal Exam GI & Abdominal Exam: Soft, Normal Bowel Sounds. absent: Distended, Firm, Guarding, Rigid, Tenderness, Organomegaly, Pulsatile Mass, Rebound - Extremities Exam Extremities Exam: absent: Joint Swelling, Pedal Edema - Neurological Exam Neurological Exam: Alert, Awake, Oriented x3 - Psychiatric Exam Psychiatric exam: Normal Affect, Normal Mood - Skin Skin Exam: Dry, Intact, Normal Color, Warm Assessment and Plan - Assessment and Plan (Free Text) Assessment: Lewis Preston is a 48M w/ hx of HL who presents with RUQ and right flank pain: CT abd revealed possible distal CBD stone ~7.6mm Acute Cholecystitis Choledocholithiasis s/p ERCP 01/27/19; POD #1 sphicterotomy with balloon sweeps Transaminemia likely 2/2 above Biliary colic hx of HL Plan: -continue to monitor LFts, may be 2/2 contrast use during the procedure -keep npo for procedure today -no indication for repeat procedure at this time, will assess after Lap emily and repeat LFTs -will continue to follow D/W Dr. Madden <Robert Madden - Last Filed: 01/28/19 10:23> Objective - Vital Signs/Intake and Output Vital Signs (last 24 hours): Temp Pulse Resp BP Pulse Ox 98.3 F 83 20 150/92 H 96 01/28/19 07:00 01/28/19 07:00 01/28/19 07:00 01/28/19 07:00 01/28/19 07:00 Intake and Output: 01/28/19 01/28/19 06:59 18:59 Intake Total 780 Balance 780 - Medications Medications: Current Medications Acetaminophen (Tylenol 325mg Tab) 650 mg PO Q6 PRN PRN Reason: Fever >100.4 F Hydromorphone HCl (Dilaudid) 0.5 mg IVP Q4H PRN PRN Reason: Pain, moderate (4-7) Piperacillin Sod/Tazobactam (Sod 3.375 gm/ Sodium Chloride) 100 mls @ 200 mls/hr IVPB Q6H [facility]; Protocol Last Admin: 01/28/19 04:31 Dose: 200 mls/hr Lactated Ringer's (Lactated Ringer's) 1,000 mls @ 150 mls/hr IV .Q6H40M [facility] Lactated Ringer's (Lactated Ringer's) 1,000 mls @ 1,000 mls/hr IV .Q1H ONE Stop: 01/28/19 11:03 Ondansetron HCl (Zofran Inj) 4 mg IVP Q6H PRN PRN Reason: Nausea/Vomiting Last Admin: 01/27/19 17:09 Dose: 4 mg - Labs Labs: 01/28/19 07:25 01/28/19 07:25 PT 11.4 SECONDS (9.7-12.2) 01/28/19 07:25 INR 1.0 01/28/19 07:25 APTT 32 SECONDS (21-34) 01/28/19 07:25 Attending/Attestation - Attestation I have personally seen and examined this patient.: Yes I have fully participated in the care of the patient.: Yes I have reviewed all pertinent clinical information, including history, physical exam and plan: Yes Notes (Text): 01/28/19 10:20 I have seen and examined patient with GI fellow. No acute events overnight, he is seen sitting in bed comfortably. He reports resolution in abdominal pain and denies nausea, vomiting, fever/chills. s/p ERCP yesterday. Review of vitals from today shows elevated BP. Hyperlipidemia Abdominal pain Cholecystitis Choledocholithiasis - s/p ERCP yesterday with stone extraction and sphincterotomy Transaminitis - NPO - Continue with antibiotic therapy - Patient planned for cholecystectomy today with surgical team - LFTs suddenly increased today, possibly related to post ERCP vs antibiotic therapy vs cholecystitis. Continue to monitor. - Will continue to monitor patient clinical course
[2019-01-28] MEDS ORDERED: Lactated Ringer's 1,000 ML IV ONE (10:04)
[2019-01-28] MEDS: Lactated Ringer's 1,000 ML IV SCH ×4 (12:42→23:35)
--- NOTE | 2019-01-28 12:43 | CP.PCM.CON ---
History of Present Illness - History of Present Illness History of Present Illness: cc: Preop OP clearence HPI: 48 year old man with severe pain located in the right upper quadrant. Worse with eating fatty food, painful to palpation. Improved with narcotics. Occurring in the context of cholelithiasis. He is reporting performing > 4 METS daily without angina or CHF. Review of Systems - Review of Systems All systems: reviewed and no additional remarkable complaints except Past Patient History - Past Medical History & Family History Past Medical History?: Yes - Past Social History Smoking Status: Never Smoked - CARDIAC Hx Hypercholesterolemia: Yes - MUSCULOSKELETAL/RHEUMATOLOGICAL Hx Falls: No - PSYCHIATRIC Hx Substance Use: No - SURGICAL HISTORY Hx Surgeries: No - ANESTHESIA Hx Anesthesia: No Hx Anesthesia Reactions: No Hx Malignant Hyperthermia: No Has any member of the family had a problem w/ anesthesia?: No Meds Allergies/Adverse Reactions: Allergies Allergy/AdvReac Type Severity Reaction Status Date / Time ibuprofen Allergy Mild Verified 01/26/19 23:47 - Medications Medications: Current Medications Acetaminophen (Tylenol 325mg Tab) 650 mg PO Q6 PRN PRN Reason: Fever >100.4 F Hydromorphone HCl (Dilaudid) 0.5 mg IVP Q4H PRN PRN Reason: Pain, moderate (4-7) Piperacillin Sod/Tazobactam (Sod 3.375 gm/ Sodium Chloride) 100 mls @ 200 mls/hr IVPB Q6H [facility]; Protocol Last Admin: 01/28/19 10:20 Dose: 200 mls/hr Lactated Ringer's (Lactated Ringer's) 1,000 mls @ 150 mls/hr IV .Q6H40M [facility] Ondansetron HCl (Zofran Inj) 4 mg IVP Q6H PRN PRN Reason: Nausea/Vomiting Last Admin: 01/27/19 17:09 Dose: 4 mg Physical Exam - Constitutional Appears: Well, Non-toxic - Head Exam Head Exam: ATRAUMATIC, NORMAL INSPECTION - Eye Exam Eye Exam: PERRL. absent: Scleral icterus - ENT Exam ENT Exam: Mucous Membranes Moist, Normal External Ear Exam - Neck Exam Neck exam: Negative for: Lymphadenopathy, Thyromegaly - Respiratory Exam Respiratory Exam: Clear to Auscultation Bilateral, NORMAL BREATHING PATTERN - Cardiovascular Exam Cardiovascular Exam: REGULAR RHYTHM, RRR, +S1, +S2. absent: JVD, Systolic Murmur - GI/Abdominal Exam GI & Abdominal Exam: Normal Bowel Sounds. absent: Organomegaly - Extremities Exam Extremities exam: Negative for: calf tenderness, pedal edema - Neurological Exam Neurological exam: CN II-XII Intact, Oriented x3 - Psychiatric Exam Psychiatric exam: Normal Affect, Normal Mood Results - Vital Signs Recent Vital Signs: Last Vital Signs Temp 98.3 F 01/28/19 07:00 Pulse 83 01/28/19 07:00 Resp 20 01/28/19 07:00 BP 150/92 H 01/28/19 07:00 Pulse Ox 96 01/28/19 07:00 - Labs Result Diagrams: 01/28/19 07:25 01/28/19 07:25 Labs: Laboratory Results - last 24 hr 01/28/19 01/28/19 01/28/19 07:25 07:25 07:25 WBC 7.9 RBC 5.04 Hgb 15.1 Hct 45.0 MCV 89.2 MCH 29.9 MCHC 33.6 RDW 13.5 Plt Count 259 MPV 8.3 Neut % (Auto) 79.7 H Lymph % (Auto) 13.0 L [place] % (Auto) 7.2 Eos % (Auto) 0.0 Baso % (Auto) 0.1 Neut # (Auto) 6.3 Lymph # (Auto) 1.0 [place] # (Auto) 0.6 Eos # (Auto) 0.0 Baso # (Auto) 0.0 PT 11.4 INR 1.0 APTT 32 Sodium 139 Potassium 4.0 Chloride 105 Carbon Dioxide 26 Anion Gap 12 BUN 10 Creatinine 1.0 Est GFR ( Amer) > 60 Est GFR (Non-Af Amer) > 60 Random Glucose 102 Calcium 9.4 Total Bilirubin 3.4 H AST 348 H D ALT 627 H D Alkaline Phosphatase 130 H D Total Protein 7.2 Albumin 4.3 Globulin 2.9 Albumin/Globulin Ratio 1.5 Lipase 76 Blood Type Antibody Screen 01/28/19 07:25 WBC RBC Hgb Hct MCV MCH MCHC RDW Plt Count MPV Neut % (Auto) Lymph % (Auto) [place] % (Auto) Eos % (Auto) Baso % (Auto) Neut # (Auto) Lymph # (Auto) [place] # (Auto) Eos # (Auto) Baso # (Auto) PT INR APTT Sodium Potassium Chloride Carbon Dioxide Anion Gap BUN Creatinine Est GFR ( Amer) Est GFR (Non-Af Amer) Random Glucose Calcium Total Bilirubin AST ALT Alkaline Phosphatase Total Protein Albumin Globulin Albumin/Globulin Ratio Lipase Blood Type O POSITIVE Antibody Screen Negative - EKG Data EKG Interpreted by: Myself EKG shows normal: Sinus rhythm Rate: Normal - Imaging and Cardiology Chest x-ray Status: Image reviewed by me Additional comment: No infiltrates or effusions Assessment & Plan - Assessment and Plan (Free Text) Assessment: 48 year old man cholelithasis scheduled for urgent cholecystectomy. Pain management, IV ABX. Patient performs >4 METS dailys therefor NO FURTHER CARDIAC WORK UP REQUIRED. PATIENT IS ACCEPTABLE RISK FOR URGENT PROCEDURE. Hyperlipidmemia Chronic and stable on diet control and omega 3 supplements. - Date & Time Date: 01/28/19 Time: 12:57
--- NOTE | 2019-01-28 12:44 | CP.PCM.PN ---
Subjective - Date & Time of Evaluation Date of Evaluation: 01/28/19 Time of Evaluation: 07:40 - Subjective Subjective: Medicine note ( Dr. Paige Keenan's service) Patient was seen and examined at bedside, while resting comfortably in bed. Patient states that he is doing well and denies any acute issues or complaints. Currently, patient denies any RUQ pain. Patient denies any symptoms of fever, chills, nausea, vomiting, bowel changes, urinary symptoms and skin color changes. Patient is a 48 year old male with past medical history of HLD, who p resented to the ED with complaints of intermittent RUQ abdominal pain that radiates to his back, which has been going on for 1 year. Patient presented this time to the hospital due to severe consistent RUQ pain for the past 2 days. Patient states that he has not noted exacerbation of symptoms with greasy food or food in general. Code Status: Full code PMHx: HLD PSHx: R. Bunion Surgery FHx: Mother: HLD and DM Medications: [place]-3 and Vitamin Allergies: Ibuprofen and Prednisone; hives Social Hx: Lives with family, denies any current or former use of tobacco/Illicit drugs and admits to social ETOH Objective - Vital Signs/Intake and Output Vital Signs (last 24 hours): Temp Pulse Resp BP Pulse Ox 98.3 F 83 20 150/92 H 96 01/28/19 07:00 01/28/19 07:00 01/28/19 07:00 01/28/19 07:00 01/28/19 07:00 Intake and Output: 01/28/19 01/28/19 06:59 18:59 Intake Total 780 Balance 780 - Medications Medications: Current Medications Acetaminophen (Tylenol 325mg Tab) 650 mg PO Q6 PRN PRN Reason: Fever >100.4 F Hydromorphone HCl (Dilaudid) 0.5 mg IVP Q4H PRN PRN Reason: Pain, moderate (4-7) Piperacillin Sod/Tazobactam (Sod 3.375 gm/ Sodium Chloride) 100 mls @ 200 mls/hr IVPB Q6H [facility]; Protocol Last Admin: 01/28/19 10:20 Dose: 200 mls/hr Lactated Ringer's (Lactated Ringer's) 1,000 mls @ 150 mls/hr IV .Q6H40M [facility] Ondansetron HCl (Zofran Inj) 4 mg IVP Q6H PRN PRN Reason: Nausea/Vomiting Last Admin: 01/27/19 17:09 Dose: 4 mg - Labs Labs: 01/28/19 07:25 01/28/19 07:25 PT 11.4 SECONDS (9.7-12.2) 01/28/19 07:25 INR 1.0 01/28/19 07:25 APTT 32 SECONDS (21-34) 01/28/19 07:25 - Constitutional Appears: Well, No Acute Distress - Head Exam Head Exam: ATRAUMATIC - Eye Exam Eye Exam: EOMI, Normal appearance. absent: Scleral icterus - ENT Exam ENT Exam: Mucous Membranes Moist - Respiratory Exam Respiratory Exam: Clear to Ausculation Bilateral, NORMAL BREATHING PATTERN. a bsent: Decreased Breath Sounds, Rales, Rhonchi, Wheezes - Cardiovascular Exam Cardiovascular Exam: REGULAR RHYTHM, +S1, +S2. absent: Tachycardia, Murmur - GI/Abdominal Exam GI & Abdominal Exam: Soft, Normal Bowel Sounds. absent: Tenderness Additional comments: Negative fowler sign - Extremities Exam Extremities Exam: Normal Inspection. absent: Calf Tenderness, Pedal Edema - Back Exam Back Exam: NORMAL INSPECTION. absent: CVA tenderness (L), CVA tenderness (R) - Neurological Exam Neurological Exam: Alert, Awake, Normal Gait, Oriented x3 - Psychiatric Exam Psychiatric exam: Normal Affect - Skin Skin Exam: Normal Color Assessment and Plan (1) Acute cholecystitis Assessment & Plan: Consultations: GI: Dr. Madden * S/p ERCP (sphicterotomy, 01/27/19) General Surgery: Dr. Bullard * Plans for lap cholecystectomy Cardiology: Dr. Brooke---> help appreciated * Preoperative clearance Imaging * MRCP (01/27/19): 5 millimeter stone within the distal common bile duct with mild extrahepatic biliary dilatation measuring up to 7 millimeters. * Abdomen/Pelvis CT (01/27/19): 1. Large 8 millimeter calculus seen at the most distal aspect of the common bile duct near the uncinate process. Clinical correlation. Dilated common bile duct measuring up to 9 millimeters. 2. Distended gallbladder with mural thickening and mild surrounding inflammatory fat stranding. These changes may represent an acute cholecystitis. Clinical correlation. 3. Prominent prostate measuring up to 5.7 centimeters. * Abdomen US (01/27/19): The CT depiction of a large approximately 7 mm calculus in the most distal common bile duct region is not visualized focus/depicted on this ultrasound image. At this pancreatic head and most distal common bile duct obscuring bowel gas is present. The common bile duct caliber on this exam is borderline prominent as referenced above. It is unknown if this is an interval change for this patient. There are no gallstones within the gallbladder proper in this patient-which is not typical. There are however multiple nonshadowing gallbladder polyps present. No positive ultrasound Fowler sign seen. The gallbladder wall is thickened-compatible with both acute and/or chronic inflammatory changes. Close continued follow-up is recommended. Medications: * Zosyn 3.375gm IV Q6H * LR @ 150mls/hr * Florastor 250mg PO BID * Zofran 4mg IV Q6H PRN * Dilaudid 0.5mg IV Q6H PRN * Tylenol 650mg PO Q6H PRN Status: Acute (2) Prophylactic measure Assessment & Plan: GI: Not indicated DVT: SCDs, anticoagulation not initiated due to planned lap cholecystectomy All plans and management discussed with Dr. Paige Keenan Status: Acute
[2019-01-28 14:25] LABS: ALB/GLOB RATIO 1.4 (1.0-2.1); ALBUMIN 4.4 g/dL (3.5-5.0); ALT/SGPT 608 U/L (21-72); AST/SGOT 319 U/L (17-59); BILIRUBIN,DIRECT 2.5 mg/dL (0.0-0.4); BLOOD UREA NITROGEN 12 mg/dL (9-20); CALCIUM 9.6 mg/dl (8.6-10.4); GFR NON-AFRICAN AMERICAN > 60
[2019-01-28 14:52] LABS: HEPATITIS B SURFACE AG Negative (NEGATIVE)
[2019-01-28 14:58] LABS: HEPATITIS A IGM NEGATIVE (NEGATIVE); HEPATITIS B CORE AB NEGATIVE (NEGATIVE)
[2019-01-28 15:09] LABS: HEPATITIS C ANTIBODY NEGATIVE (NEGATIVE)
--- NOTE | 2019-01-28 16:15 | CP.PCM.PN ---
<Coy Thomas - Last Filed: 01/28/19 16:12> Subjective - Date & Time of Evaluation Date of Evaluation: 01/28/19 Time of Evaluation: 16:12 - Subjective Subjective: Surgery Progress- Dr. Bullard Patient seen and examined at bedside. s/p ERCP for choledocho. at this time was NPO planning surgery. however due to elevation in liver enzymes and T.bili will post pone case for now. + OOB and ambulating Objective - Vital Signs/Intake and Output Vital Signs (last 24 hours): Temp Pulse Resp BP Pulse Ox 98.3 F 83 20 150/92 H 96 01/28/19 07:00 01/28/19 07:00 01/28/19 07:00 01/28/19 07:00 01/28/19 07:00 Intake and Output: 01/28/19 01/28/19 06:59 18:59 Intake Total 780 Balance 780 - Medications Medications: Current Medications Acetaminophen (Tylenol 325mg Tab) 650 mg PO Q6 PRN PRN Reason: Fever >100.4 F Hydromorphone HCl (Dilaudid) 0.5 mg IVP Q4H PRN PRN Reason: Pain, moderate (4-7) Piperacillin Sod/Tazobactam (Sod 3.375 gm/ Sodium Chloride) 100 mls @ 200 mls/hr IVPB Q6H [facility]; Protocol Last Admin: 01/28/19 10:20 Dose: 200 mls/hr Lactated Ringer's (Lactated Ringer's) 1,000 mls @ 150 mls/hr IV .Q6H40M [facility] Last Admin: 01/28/19 12:42 Dose: 150 mls/hr Ondansetron HCl (Zofran Inj) 4 mg IVP Q6H PRN PRN Reason: Nausea/Vomiting Last Admin: 01/27/19 17:09 Dose: 4 mg Saccharomyces Boulardii (Florastor) 250 mg PO BID [facility] - Labs Labs: 01/28/19 07:25 01/28/19 14:00 PT 11.4 SECONDS (9.7-12.2) 01/28/19 07:25 INR 1.0 01/28/19 07:25 APTT 32 SECONDS (21-34) 01/28/19 07:25 - Constitutional Appears: Non-toxic, No Acute Distress - Eye Exam Eye Exam: EOMI, PERRL - ENT Exam ENT Exam: Mucous Membranes Moist - Respiratory Exam Respiratory Exam: NORMAL BREATHING PATTERN. absent: Accessory Muscle Use, Respiratory Distress - Cardiovascular Exam Cardiovascular Exam: REGULAR RHYTHM. absent: Bradycardia, Tachycardia - GI/Abdominal Exam GI & Abdominal Exam: Soft, Tenderness (tender in RUQ). absent: Distended, Firm, Guarding, Rigid - Extremities Exam Extremities Exam: absent: Calf Tenderness - Neurological Exam Neurological Exam: Alert, Awake, Oriented x3 - Skin Skin Exam: Normal Color, Warm Assessment and Plan - Assessment and Plan (Free Text) Assessment: 48M w/ Choledocholithiasis s/p ERCP baloon sweep and sphincteroplasty w/ GI POD#1 Plan: - Cholecystectomy postponed due to elevated transaminitis and T.Bili - restart diet - will plan for surgery - continued medical mangement - repeat labs in AM - further rec[facility] <Glenn Bullard B - Last Filed: 02/01/19 18:20> Objective - Vital Signs/Intake and Output Vital Signs (last 24 hours): Temp Pulse Resp BP Pulse Ox 98.6 F 77 20 138/86 96 02/01/19 15:00 02/01/19 15:00 02/01/19 15:00 02/01/19 15:00 02/01/19 15:00 Intake and Output: 02/01/19 02/01/19 06:59 18:59 Intake Total 1000 Output Total 950 Balance 50 - Medications Medications: Current Medications Acetaminophen (Tylenol 325mg Tab) 650 mg PO Q6 PRN PRN Reason: Fever >100.4 F Hydromorphone HCl (Dilaudid) 0.5 mg IVP Q4H PRN PRN Reason: Pain, moderate (4-7) Meropenem 1 gm/ Sodium (Chloride) 100 mls @ 100 mls/hr IVPB Q8H [facility]; Protocol Last Admin: 02/01/19 15:31 Dose: 100 mls/hr Lactated Ringer's (Lactated Ringer's) 1,000 mls @ 100 mls/hr IV .Q10H [facility] Last Admin: 02/01/19 14:39 Dose: Not Given Ondansetron HCl (Zofran Inj) 4 mg IVP Q6H PRN PRN Reason: Nausea/Vomiting Last Admin: 01/27/19 17:09 Dose: 4 mg Potassium Chloride (Klor-Con 10) 20 meq PO ONCE PRN PRN Reason: low K Last Admin: 02/01/19 15:07 Dose: 20 meq Saccharomyces Boulardii (Florastor) 250 mg PO BID [facility] Last Admin: 02/01/19 17:16 Dose: 250 mg - Labs Labs: 02/01/19 08:52 02/01/19 08:52 PT 11.4 SECONDS (9.7-12.2) 01/28/19 07:25 INR 1.0 01/28/19 07:25 APTT 32 SECONDS (21-34) 01/28/19 07:25 Attending/Attestation - Attestation I have personally seen and examined this patient.: Yes I have fully participated in the care of the patient.: Yes I have reviewed all pertinent clinical information, including history, physical exam and plan: Yes Notes (Text): Pt was seen and examined at bedside Agree with above note and assessment Pt is S/P ERCP LFT is trending up Will postponed Cholecystectomy due to rising T.Bili Repeat LFTs in am c.w current mx Plan d.w pt and GI team
[2019-01-28] MEDS: Saccharomyces Boulardi 250 mg Cap PO SCH (18:24)
--- NOTE | 2019-01-28 19:53 | CP.PCM.PN ---
Subjective - Date & Time of Evaluation Date of Evaluation: 01/28/19 - Subjective Subjective: patient seen today no nausea no vomiting no fever no chest pain no shortnes of breath no diarrhea Objective - Vital Signs/Intake and Output Vital Signs (last 24 hours): Temp Pulse Resp BP Pulse Ox 98.4 F 76 20 164/94 H 97 01/28/19 15:00 01/28/19 15:00 01/28/19 15:00 01/28/19 15:00 01/28/19 15:00 - Medications Medications: Current Medications Acetaminophen (Tylenol 325mg Tab) 650 mg PO Q6 PRN PRN Reason: Fever >100.4 F Hydromorphone HCl (Dilaudid) 0.5 mg IVP Q4H PRN PRN Reason: Pain, moderate (4-7) Piperacillin Sod/Tazobactam (Sod 3.375 gm/ Sodium Chloride) 100 mls @ 200 mls/hr IVPB Q6H [facility]; Protocol Last Admin: 01/28/19 16:13 Dose: 200 mls/hr Lactated Ringer's (Lactated Ringer's) 1,000 mls @ 150 mls/hr IV .Q6H40M [facility] Last Admin: 01/28/19 18:26 Dose: Not Given Ondansetron HCl (Zofran Inj) 4 mg IVP Q6H PRN PRN Reason: Nausea/Vomiting Last Admin: 01/27/19 17:09 Dose: 4 mg Saccharomyces Boulardii (Florastor) 250 mg PO BID [facility] Last Admin: 01/28/19 18:24 Dose: 250 mg - Labs Labs: 01/28/19 07:25 01/28/19 14:00 PT 11.4 SECONDS (9.7-12.2) 01/28/19 07:25 INR 1.0 01/28/19 07:25 APTT 32 SECONDS (21-34) 01/28/19 07:25 - Constitutional Appears: Well - Head Exam Head Exam: ATRAUMATIC, NORMAL INSPECTION, NORMOCEPHALIC - Eye Exam Eye Exam: EOMI, Normal appearance, PERRL Pupil Exam: NORMAL ACCOMODATION, PERRL - ENT Exam ENT Exam: Mucous Membranes Moist, Normal Exam - Neck Exam Neck Exam: Full ROM, Normal Inspection. absent: Lymphadenopathy - Respiratory Exam Respiratory Exam: Decreased Breath Sounds - Cardiovascular Exam Cardiovascular Exam: REGULAR RHYTHM, +S1, +S2 - GI/Abdominal Exam GI & Abdominal Exam: Soft, Diminished Bowel Sounds - Rectal Exam Rectal Exam: Deferred - Neurological Exam Neurological Exam: Oriented x3 Assessment and Plan - Assessment and Plan (Free Text) Plan: labs reviewed vitals reviewed medications reviewed dilaudid florastor lactated ringers pipercallin sodium tazabactam tylenol zofran
[2019-01-29] MEDS: Piperacillin/Tazobact 3.375 GM in Sodium Chloride 100 ML IVPB SCH ×4 (04:02→22:01)
[2019-01-29] MEDS: Lactated Ringer's 1,000 ML IV SCH ×3 (04:02→19:35)
--- NOTE | 2019-01-29 08:12 | CP.PCM.PN ---
<Irma Keenan - Last Filed: 01/29/19 08:12> Subjective - Date & Time of Evaluation Date of Evaluation: 01/29/19 Time of Evaluation: 07:00 - Subjective Subjective: PGY5 GI Follow-up Pt seen and examined bedside Denies any abd pain NPO since last night -BM Denies any Nausea and vomiting, fever or chills ROS: 12 point ROS conducted, neg other than above Objective - Vital Signs/Intake and Output Vital Signs (last 24 hours): Temp Pulse Resp BP Pulse Ox 98.6 F 84 20 169/97 H 96 01/29/19 07:15 01/29/19 07:15 01/29/19 07:15 01/29/19 07:15 01/29/19 07:15 Intake and Output: 01/29/19 01/29/19 06:59 18:59 Intake Total 1225 1200 Output Total 450 900 Balance 775 300 - Medications Medications: Current Medications Acetaminophen (Tylenol 325mg Tab) 650 mg PO Q6 PRN PRN Reason: Fever >100.4 F Hydromorphone HCl (Dilaudid) 0.5 mg IVP Q4H PRN PRN Reason: Pain, moderate (4-7) Piperacillin Sod/Tazobactam (Sod 3.375 gm/ Sodium Chloride) 100 mls @ 200 mls /hr IVPB Q6H [facility]; Protocol Last Admin: 01/29/19 04:02 Dose: 200 mls/hr Lactated Ringer's (Lactated Ringer's) 1,000 mls @ 150 mls/hr IV .Q6H40M [facility] Last Admin: 01/29/19 06:15 Dose: Not Given Ondansetron HCl (Zofran Inj) 4 mg IVP Q6H PRN PRN Reason: Nausea/Vomiting Last Admin: 01/27/19 17:09 Dose: 4 mg Saccharomyces Boulardii (Florastor) 250 mg PO BID [facility] Last Admin: 01/28/19 18:24 Dose: 250 mg - Labs Labs: 01/28/19 07:25 01/28/19 14:00 PT 11.4 SECONDS (9.7-12.2) 01/28/19 07:25 INR 1.0 01/28/19 07:25 APTT 32 SECONDS (21-34) 01/28/19 07:25 - Constitutional Appears: Non-toxic, No Acute Distress - Head Exam Head Exam: ATRAUMATIC, NORMOCEPHALIC - Eye Exam Eye Exam: Normal appearance - ENT Exam ENT Exam: Mucous Membranes Moist - Neck Exam Neck Exam: Normal Inspection - Respiratory Exam Respiratory Exam: Clear to Ausculation Bilateral, NORMAL BREATHING PATTERN. absent: Rales, Rhonchi, Wheezes, Respiratory Distress - Cardiovascular Exam Cardiovascular Exam: REGULAR RHYTHM, +S1, +S2 - GI/Abdominal Exam GI & Abdominal Exam: Soft, Normal Bowel Sounds. absent: Distended, Firm, Guarding, Rigid, Tenderness, Organomegaly, Rebound - Extremities Exam Extremities Exam: absent: Joint Swelling, Pedal Edema - Neurological Exam Neurological Exam: Alert, Awake, Oriented x3 - Psychiatric Exam Psychiatric exam: Normal Affect, Normal Mood - Skin Skin Exam: Dry, Intact, Normal Color, Warm Assessment and Plan - Assessment and Plan (Free Text) Assessment: Assessment: Lewis Preston is a 48M w/ hx of HL who presents with RUQ and right flank pain: CT abd revealed possible distal CBD stone ~7.6mm Acute Cholecystitis Choledocholithiasis s/p ERCP 01/27/19; POD #2 sphicterotomy with balloon sweeps Transaminemia, DDx: post-ercp, antibiotics (Day 3 zosyn), cholecystitis Biliary colic hx of HL Plan: -continue to monitor LFTs -etiology unclear, consider switching abc -repeat LFTs pending in the AM -avoid all hepatotoxic drugs -lap emily postponed, pending LFTs as per surgery -will continue to follow D/W Dr. Madden <Robert Madden - Last Filed: 01/29/19 10:43> Objective - Vital Signs/Intake and Output Vital Signs (last 24 hours): Temp Pulse Resp BP Pulse Ox 98.6 F 84 20 169/97 H 96 01/29/19 07:15 01/29/19 07:15 01/29/19 07:15 01/29/19 07:15 01/29/19 07:15 Intake and Output: 01/29/19 01/29/19 06:59 18:59 Intake Total 1225 1200 Output Total 450 900 Balance 775 300 - Medications Medications: Current Medications Acetaminophen (Tylenol 325mg Tab) 650 mg PO Q6 PRN PRN Reason: Fever >100.4 F Hydromorphone HCl (Dilaudid) 0.5 mg IVP Q4H PRN PRN Reason: Pain, moderate (4-7) Piperacillin Sod/Tazobactam (Sod 3.375 gm/ Sodium Chloride) 100 mls @ 200 mls/hr IVPB Q6H [facility]; Protocol Last Admin: 01/29/19 10:27 Dose: 200 mls/hr Lactated Ringer's (Lactated Ringer's) 1,000 mls @ 150 mls/hr IV .Q6H40M [facility] Last Admin: 01/29/19 06:15 Dose: Not Given Ondansetron HCl (Zofran Inj) 4 mg IVP Q6H PRN PRN Reason: Nausea/Vomiting Last Admin: 01/27/19 17:09 Dose: 4 mg Saccharomyces Boulardii (Florastor) 250 mg PO BID [facility] Last Admin: 01/29/19 10:27 Dose: 250 mg - Labs Labs: 01/29/19 08:50 01/29/19 08:50 PT 11.4 SECONDS (9.7-12.2) 01/28/19 07:25 INR 1.0 01/28/19 07:25 APTT 32 SECONDS (21-34) 01/28/19 07:25 Attending/Attestation - Attestation I have personally seen and examined this patient.: Yes I have fully participated in the care of the patient.: Yes I have reviewed all pertinent clinical information, including history, physical exam and plan: Yes Notes (Text): 01/29/19 10:41 I have seen and examined patient with GI fellow. No acute events overnight, he is seen resting in bed comfortably. He denies abdominal pain, nausea, vomiting, fever/chills. He is hungry and asking for diet to be advanced. Review of vitals from today shows elevated BP. Abdominal pain Cholecystitis Choledocholithiasis - s/p ERCP with balloon sweep and sphincterotomy Transaminitis - NPO - Continue with antibiotic therapy - Given persistent elevation in LFTs following ERCP, MRCP ordered by surgical team. Will follow up results. - Follow up surgical recommendations - Will continue to monitor patient clinical course
[2019-01-29 09:07] LABS: BASO % 0.6 % (0.0-2.0); EOS % 0.4 % (0.0-4.0); HEMOGLOBIN 15.6 g/dL (12.0-18.0); LYMPH # 1.3 K/uL (1.0-4.3); LYMPH % 18.4 % (20.0-40.0); MEAN CELL VOLUME 89.1 fL (80.0-94.0); MEAN CORPUSCULAR HEMOGLOBIN 30.1 pg (27.0-31.0); MEAN CORPUSCULAR HGB CONC 33.8 g/dL (33.0-37.0); MEAN PLATELET VOLUME 7.8 fL (7.2-11.7); MONO # 0.5 K/uL (0.0-0.8); MONO % 7.1 % (0.0-10.0); NEUT # 5.4 K/uL (1.8-7.0); NEUT % 73.5 % (50.0-75.0); RBC 5.19 Mil/uL (4.40-5.90); RED CELL DISTRIBUTION WIDTH 13.3 % (11.5-14.5); WHITE BLOOD COUNT 7.3 K/uL (4.8-10.8)
[2019-01-29 09:29] LABS: ALB/GLOB RATIO 1.4 (1.0-2.1); ALBUMIN 4.3 g/dL (3.5-5.0); ALT/SGPT 456 U/L (21-72); AST/SGOT 175 U/L (17-59); BLOOD UREA NITROGEN 12 mg/dL (9-20); CALCIUM 9.3 mg/dl (8.6-10.4); GFR NON-AFRICAN AMERICAN > 60
[2019-01-29] MEDS: Saccharomyces Boulardi 250 mg Cap PO SCH ×2 (10:27→17:10)
--- NOTE | 2019-01-29 10:59 | CP.PCM.PN ---
Subjective - Date & Time of Evaluation Date of Evaluation: 01/29/19 Time of Evaluation: 10:56 - Subjective Subjective: No abdominal pain No CP or SOB No N/V fevers or chills LFTs trending down T. Bili up Objective - Vital Signs/Intake and Output Vital Signs (last 24 hours): Temp Pulse Resp BP Pulse Ox 98.6 F 84 20 169/97 H 96 01/29/19 07:15 01/29/19 07:15 01/29/19 07:15 01/29/19 07:15 01/29/19 07:15 Intake and Output: 01/29/19 01/29/19 06:59 18:59 Intake Total 1225 1200 Output Total 450 900 Balance 775 300 - Medications Medications: Current Medications Acetaminophen (Tylenol 325mg Tab) 650 mg PO Q6 PRN PRN Reason: Fever >100.4 F Hydromorphone HCl (Dilaudid) 0.5 mg IVP Q4H PRN PRN Reason: Pain, moderate (4-7) Piperacillin Sod/Tazobactam (Sod 3.375 gm/ Sodium Chloride) 100 mls @ 200 mls/hr IVPB Q6H [facility]; Protocol Last Admin: 01/29/19 10:27 Dose: 200 mls/hr Lactated Ringer's (Lactated Ringer's) 1,000 mls @ 150 mls/hr IV .Q6H40M [facility] Last Admin: 01/29/19 06:15 Dose: Not Given Ondansetron HCl (Zofran Inj) 4 mg IVP Q6H PRN PRN Reason: Nausea/Vomiting Last Admin: 01/27/19 17:09 Dose: 4 mg Saccharomyces Boulardii (Florastor) 250 mg PO BID [facility] Last Admin: 01/29/19 10:27 Dose: 250 mg - Labs Labs: 01/29/19 08:50 01/29/19 08:50 PT 11.4 SECONDS (9.7-12.2) 01/28/19 07:25 INR 1.0 01/28/19 07:25 APTT 32 SECONDS (21-34) 01/28/19 07:25 - Constitutional Appears: No Acute Distress - Eye Exam Eye Exam: Normal appearance - ENT Exam ENT Exam: Mucous Membranes Moist - Neck Exam Neck Exam: Normal Inspection - Respiratory Exam Respiratory Exam: Clear to Ausculation Bilateral, NORMAL BREATHING PATTERN - Cardiovascular Exam Cardiovascular Exam: REGULAR RHYTHM, +S1, +S2. absent: Murmur - GI/Abdominal Exam GI & Abdominal Exam: Soft. absent: Tenderness - Extremities Exam Extremities Exam: Normal Inspection. absent: Calf Tenderness - Neurological Exam Neurological Exam: Alert, Awake - Psychiatric Exam Psychiatric exam: Normal Affect, Normal Mood - Skin Skin Exam: Normal Color, Warm Assessment and Plan - Assessment and Plan (Free Text) Assessment: Acute cholecystitis Transaminitis Mild HTN: Clinically no volume overload or active cardiac sx's Remains acceptable risk to proceed with surgery. EK01/26/19: Normal, no acute changes
--- NOTE | 2019-01-29 12:56 | CP.PCM.PN ---
<Sriram Celestin - Last Filed: 01/29/19 12:53> Subjective - Date & Time of Evaluation Date of Evaluation: 01/29/19 Time of Evaluation: 12:53 - Subjective Subjective: General Surgery Progress Note for Dr. Bullard Patient seen and examined at bedside. No acute event overnight. Patient liver enzymes are downtrending but T.bili is increasing. Patient remains NPO. Will get MRCP today. Patient has been OOB and ambulating. He reports flatus and BM. He complains of throat pain. Objective - Vital Signs/Intake and Output Vital Signs (last 24 hours): Temp Pulse Resp BP Pulse Ox 98.6 F 84 20 169/97 H 96 01/29/19 07:15 01/29/19 07:15 01/29/19 07:15 01/29/19 07:15 01/29/19 07:15 Intake and Output: 01/29/19 01/29/19 06:59 18:59 Intake Total 1225 1200 Output Total 450 900 Balance 775 300 - Medications Medications: Current Medications Acetaminophen (Tylenol 325mg Tab) 650 mg PO Q6 PRN PRN Reason: Fever >100.4 F Hydromorphone HCl (Dilaudid) 0.5 mg IVP Q4H PRN PRN Reason: Pain, moderate (4-7) Piperacillin Sod/Tazobactam (Sod 3.375 gm/ Sodium Chloride) 100 mls @ 200 mls/hr IVPB Q6H [facility]; Protocol Last Admin: 01/29/19 10:27 Dose: 200 mls/hr Lactated Ringer's (Lactated Ringer's) 1,000 mls @ 150 mls/hr IV .Q6H40M [facility] Last Admin: 01/29/19 06:15 Dose: Not Given Ondansetron HCl (Zofran Inj) 4 mg IVP Q6H PRN PRN Reason: Nausea/Vomiting Last Admin: 01/27/19 17:09 Dose: 4 mg Saccharomyces Boulardii (Florastor) 250 mg PO BID [facility] Last Admin: 01/29/19 10:27 Dose: 250 mg - Labs Labs: 01/29/19 08:50 01/29/19 08:50 PT 11.4 SECONDS (9.7-12.2) 01/28/19 07:25 INR 1.0 01/28/19 07:25 APTT 32 SECONDS (21-34) 01/28/19 07:25 - Additional Findings Additional findings: - Constitutional Appears: Non-toxic, No Acute Distress - Eye Exam Eye Exam: EOMI, PERRL - ENT Exam ENT Exam: Mucous Membranes Moist - Respiratory Exam Respiratory Exam: NORMAL BREATHING PATTERN. absent: Accessory Muscle Use, Respiratory Distress - Cardiovascular Exam Cardiovascular Exam: REGULAR RHYTHM. absent: Bradycardia, Tachycardia - GI/Abdominal Exam GI & Abdominal Exam: Soft. absent: Distended, Firm, Guarding, Rigid, Tenderness. - Extremities Exam Extremities Exam: absent: Calf Tenderness - Neurological Exam Neurological Exam: Alert, Awake, Oriented x3 - Skin Skin Exam: Normal Color, Warm Assessment and Plan - Assessment and Plan (Free Text) Assessment: 48M with Choledocholithiasis s/p ERCP balloon sweep and sphincteroplasty POD#2 and hyperbilirubinemia Plan: - NPO - Trend LFTs and T. bili - f/u MRCP - daily labs - f/u GI recs - Medical management as per primary - further recs per Dr. Juan Miguel Celestin PGY2 <Glenn Bullard - Last Filed: 02/01/19 18:21> Objective - Vital Signs/Intake and Output Vital Signs (last 24 hours): Temp Pulse Resp BP Pulse Ox 98.6 F 77 20 138/86 96 02/01/19 15:00 02/01/19 15:00 02/01/19 15:00 02/01/19 15:00 02/01/19 15:00 Intake and Output: 02/01/19 02/01/19 06:59 18:59 Intake Total 1000 Output Total 950 Balance 50 - Medications Medications: Current Medications Acetaminophen (Tylenol 325mg Tab) 650 mg PO Q6 PRN PRN Reason: Fever >100.4 F Hydromorphone HCl (Dilaudid) 0.5 mg IVP Q4H PRN PRN Reason: Pain, moderate (4-7) Meropenem 1 gm/ Sodium (Chloride) 100 mls @ 100 mls/hr IVPB Q8H [facility]; Protocol Last Admin: 02/01/19 15:31 Dose: 100 mls/hr Lactated Ringer's (Lactated Ringer's) 1,000 mls @ 100 mls/hr IV .Q10H [facility] Last Admin: 02/01/19 14:39 Dose: Not Given Ondansetron HCl (Zofran Inj) 4 mg IVP Q6H PRN PRN Reason: Nausea/Vomiting Last Admin: 01/27/19 17:09 Dose: 4 mg Potassium Chloride (Klor-Con 10) 20 meq PO ONCE PRN PRN Reason: low K Last Admin: 02/01/19 15:07 Dose: 20 meq Saccharomyces Boulardii (Florastor) 250 mg PO BID [facility] Last Admin: 02/01/19 17:16 Dose: 250 mg - Labs Labs: 02/01/19 08:52 02/01/19 08:52 PT 11.4 SECONDS (9.7-12.2) 01/28/19 07:25 INR 1.0 01/28/19 07:25 APTT 32 SECONDS (21-34) 01/28/19 07:25 Attending/Attestation - Attestation I have personally seen and examined this patient.: Yes I have fully participated in the care of the patient.: Yes I have reviewed all pertinent clinical information, including history, physical exam and plan: Yes Notes (Text): Pt was seen and examined at bedside Agree with above note and assessment LFT is still abnormal T bili is increasing MRCP today c.w current mx Plan d.w pt and GI team
--- NOTE | 2019-01-29 13:14 | CP.PCM.PN ---
Subjective - Date & Time of Evaluation Date of Evaluation: 01/29/19 - Subjective Subjective: patient seen today no nausea no vomiting no diarrhea no fever no dizziness no shortness of breath Objective - Vital Signs/Intake and Output Vital Signs (last 24 hours): Temp Pulse Resp BP Pulse Ox 98.6 F 84 20 169/97 H 96 01/29/19 07:15 01/29/19 07:15 01/29/19 07:15 01/29/19 07:15 01/29/19 07:15 Intake and Output: 01/29/19 01/29/19 06:59 18:59 Intake Total 1225 1200 Output Total 450 900 Balance 775 300 - Medications Medications: Current Medications Acetaminophen (Tylenol 325mg Tab) 650 mg PO Q6 PRN PRN Reason: Fever >100.4 F Hydromorphone HCl (Dilaudid) 0.5 mg IVP Q4H PRN PRN Reason: Pain, moderate (4-7) Piperacillin Sod/Tazobactam (Sod 3.375 gm/ Sodium Chloride) 100 mls @ 200 mls/hr IVPB Q6H [facility]; Protocol Last Admin: 01/29/19 10:27 Dose: 200 mls/hr Lactated Ringer's (Lactated Ringer's) 1,000 mls @ 150 mls/hr IV .Q6H40M [facility] Last Admin: 01/29/19 06:15 Dose: Not Given Ondansetron HCl (Zofran Inj) 4 mg IVP Q6H PRN PRN Reason: Nausea/Vomiting Last Admin: 01/27/19 17:09 Dose: 4 mg Saccharomyces Boulardii (Florastor) 250 mg PO BID [facility] Last Admin: 01/29/19 10:27 Dose: 250 mg - Labs Labs: 01/29/19 08:50 01/29/19 08:50 PT 11.4 SECONDS (9.7-12.2) 01/28/19 07:25 INR 1.0 01/28/19 07:25 APTT 32 SECONDS (21-34) 01/28/19 07:25 - Constitutional Appears: Well - Head Exam Head Exam: ATRAUMATIC, NORMAL INSPECTION, NORMOCEPHALIC - Eye Exam Eye Exam: EOMI, Normal appearance, PERRL Pupil Exam: NORMAL ACCOMODATION, PERRL - ENT Exam ENT Exam: Mucous Membranes Moist, Normal Exam - Neck Exam Neck Exam: Full ROM, Normal Inspection. absent: Lymphadenopathy - Respiratory Exam Respiratory Exam: Decreased Breath Sounds - Cardiovascular Exam Cardiovascular Exam: REGULAR RHYTHM, +S1, +S2 - GI/Abdominal Exam GI & Abdominal Exam: Soft, Diminished Bowel Sounds - Rectal Exam Rectal Exam: Deferred - Neurological Exam Neurological Exam: Oriented x3 Assessment and Plan - Assessment and Plan (Free Text) Plan: dilaudid florastor lactated ringers pipercallin sodium tazabactam tylenol zofran medications reviewed labs reviewed vitals reviewed
--- NOTE | 2019-01-29 14:02 | CP.PCM.PN ---
Subjective - Date & Time of Evaluation Date of Evaluation: 01/29/19 Time of Evaluation: 08:00 - Subjective Subjective: Medicine Progress Note for Dr. Leanna Keenan Patient was seen and examined at bedside. Patient denies any symptoms of fever, chills, nausea, vomiting, bowel changes or urinary symptoms. Objective - Vital Signs/Intake and Output Vital Signs (last 24 hours): Temp Pulse Resp BP Pulse Ox 98.6 F 84 20 169/97 H 96 01/29/19 07:15 01/29/19 07:15 01/29/19 07:15 01/29/19 07:15 01/29/19 07:15 Intake and Output: 01/29/19 01/29/19 06:59 18:59 Intake Total 1225 1200 Output Total 450 900 Balance 775 300 - Medications Medications: Current Medications Acetaminophen (Tylenol 325mg Tab) 650 mg PO Q6 PRN PRN Reason: Fever >100.4 F Hydromorphone HCl (Dilaudid) 0.5 mg IVP Q4H PRN PRN Reason: Pain, moderate (4-7) Piperacillin Sod/Tazobactam (Sod 3.375 gm/ Sodium Chloride) 100 mls @ 200 mls/hr IVPB Q6H [facility]; Protocol Last Admin: 01/29/19 10:27 Dose: 200 mls/hr Lactated Ringer's (Lactated Ringer's) 1,000 mls @ 150 mls/hr IV .Q6H40M [facility] Last Admin: 01/29/19 06:15 Dose: Not Given Ondansetron HCl (Zofran Inj) 4 mg IVP Q6H PRN PRN Reason: Nausea/Vomiting Last Admin: 01/27/19 17:09 Dose: 4 mg Saccharomyces Boulardii (Florastor) 250 mg PO BID [facility] Last Admin: 01/29/19 10:27 Dose: 250 mg - Labs Labs: 01/29/19 08:50 01/29/19 08:50 PT 11.4 SECONDS (9.7-12.2) 01/28/19 07:25 INR 1.0 01/28/19 07:25 APTT 32 SECONDS (21-34) 01/28/19 07:25 - Constitutional Appears: No Acute Distress - Head Exam Head Exam: ATRAUMATIC, NORMAL INSPECTION - Eye Exam Eye Exam: EOMI - ENT Exam ENT Exam: Mucous Membranes Moist - Respiratory Exam Respiratory Exam: NORMAL BREATHING PATTERN - Cardiovascular Exam Cardiovascular Exam: REGULAR RHYTHM - GI/Abdominal Exam GI & Abdominal Exam: Soft, Normal Bowel Sounds. absent: Tenderness - Neurological Exam Neurological Exam: Alert, Awake, Oriented x3 - Psychiatric Exam Psychiatric exam: Normal Affect - Skin Skin Exam: Normal Color Assessment and Plan - Assessment and Plan (Free Text) Assessment: Acute cholecystitis Consultations: GI: Dr. Madden * S/p ERCP (sphicterotomy, 01/27/19) General Surgery: Dr. Bullard * Plans for lap cholecystectomy Cardiology: Dr. Brooke---> help appreciated * Preoperative clearance: Remains acceptable risk to proceed with surgery. Imaging * MRCP (01/29/19): Distended gallbladder T1-T2 hypointense signal within the nondependent portion gallbladder lumen; correlate clinically for calculus, air, etc. Mild hepatic steatosis. Too small to characterize 7 mm T2 hyperintensity at the dome, statistically likely cyst or hemangioma. Trace bilateral pleural effusions. * MRCP (01/27/19): 5 millimeter stone within the distal common bile duct with mild extrahepatic biliary dilatation measuring up to 7 millimeters. * Abdomen/Pelvis CT (01/27/19): 1. Large 8 millimeter calculus seen at the most distal aspect of the common bile duct near the uncinate process. Clinical correlation. Dilated common bile duct measuring up to 9 millimeters. 2. Distended gallbladder with mural thickening and mild surrounding inflammatory fat stranding. These changes may represent an acute cholecystitis. Clinical correlation. 3. Prominent prostate measuring up to 5.7 centimeters. * Abdomen US (01/27/19): The CT depiction of a large approximately 7 mm calculus in the most distal common bile duct region is not visualized focus/depicted on this ultrasound image. At this pancreatic head and most distal common bile duct obscuring bowel gas is present. The common bile duct caliber on this exam is borderline prominent as referenced above. It is unknown if this is an interval change for this patient. There are no gallstones within the gallbladder proper in this patient-which is not typical. There are however multiple nonshadowing gallbladder polyps present. No positive ultrasound Fowler sign seen. The gallbladder wall is thickened-compatible with both acute and/or chronic inflammatory changes. Close continued follow-up is recommended. Medications: * Zosyn 3.375gm IV Q6H * LR @ 150mls/hr * Florastor 250mg PO BID * Zofran 4mg IV Q6H PRN * Dilaudid 0.5mg IV Q6H PRN * Tylenol 650mg PO Q6H PRN Elevated liver enzymes - Possibly secondary to ERCP (01/22/19) - Liver Enzymes are trending down - Hepatitis panel: Negative - PT/PTT: WNL - Cholecystectomy cancelled 01/28/19 due to elevated enzymes Prophylaxis GI: Not indicated DVT: SCDs, anticoagulation not initiated due to planned lap cholecystectomy All plans and management discussed with Dr. Paige Keenan
--- NOTE | 2019-01-29 14:05 | MRI ---
MRCP Indication: elevated tbili post ERCP Technique: Multiplanar, multisequence MR images of the abdomen were obtained, including heavily T2 weighted MRCP images of the biliary system. Rotating maximum intensity projection images of the biliary system were generated. A total of 695 images were submitted for review. Comparison: MRCP performed 01/27/19 Findings: Mild hepatic steatosis. Too small to characterize 7 mm T2 hyperintensity at the dome, statistically likely cyst or hemangioma. Gallbladder appears distended. T1-T2 hypointense signal within the nondependent portion of the gallbladder. There is no intrahepatic biliary ductal dilatation. The limited visualized portions of the common bile duct appears within normal limits in caliber and tapers distally. The pancreatic duct appears within normal limits of caliber. No filling defects are seen in the common bile duct or pancreatic duct. The noncontrast fluid portions of the adrenal glands, kidneys, spleen, and pancreas appear unremarkable. No bulky abdominal lymphadenopathy is seen. No ascites. Limited lung bases demonstrates trace effusions. No acute osseous abnormality is detected. Impression: Distended gallbladder T1-T2 hypointense signal within the nondependent portion gallbladder lumen; correlate clinically for calculus, air, etc. Mild hepatic steatosis. Too small to characterize 7 mm T2 hyperintensity at the dome, statistically likely cyst or hemangioma. Trace bilateral pleural effusions.
--- NOTE | 2019-01-29 14:10 | CARD ---
APPROVED REPORT Date of service: 01/27/2019 EKG Measurement Heart [id number] <Conclusion> Normal sinus rhythm Inferior infarct, age undetermined Abnormal ECG
--- NOTE | 2019-01-29 14:52 | VASCLAB ---
Date of service: 01/29/2019 PROCEDURE: Lower Extremity Venous Duplex Exam. HISTORY: LE pain PRIORS: None. TECHNIQUE: Bilateral common femoral, femoral, popliteal and posterior tibial, peroneal and great saphenous veins were evaluated. Flow was assessed with color Doppler, compressibility, assessment of phasic flow and augmentation response. Report prepared by JAMES Lora FINDINGS: RIGHT: 1. Common Femoral Vein: 1.1. Compressibility - Fully compressible: Thrombus - None : Flow - Phasic: Augmentation -Normal: Reflux - None. 2. Femoral Vein: 2.1. Compressibility - Fully compressible: Thrombus - None : Flow - Phasic: Augmentation -Normal: Reflux - None. 3. Popliteal Vein: 3.1. Compressibility - Fully compressible: Thrombus - None : Flow - Phasic: Augmentation -Normal: Reflux - None. 4. Posterior Tibial Vein: 4.1. Compressibility - Fully compressible: Thrombus - None: Flow - Phasic: Augmentation -Normal: Reflux - None. 5. Peroneal Vein: 5.1. Compressibility - Fully compressible: Thrombus - None: Flow - Phasic: Augmentation -Normal: Reflux - None. 6. Great Saphenous Vein: 6.1. Compressibility - Fully compressible: Thrombus - None: Flow - Phasic: Augmentation - Normal: Reflux - None. LEFT: 1. Common Femoral Vein: 1.1. Compressibility - Fully compressible: Thrombus - None: Flow - Phasic: Augmentation -Normal: Reflux - None. 2. Femoral Vein: 2.1. Compressibility - Fully compressible: Thrombus - None: Flow - Phasic: Augmentation -Normal: Reflux - None. 3. Popliteal Vein: 3.1. Compressibility - Fully compressible: Thrombus - None : Flow - Phasic: Augmentation -Normal: Reflux - None. 4. Posterior Tibial Vein: 4.1. Compressibility - Fully compressible: Thrombus - None: Flow - Phasic: Augmentation -Normal: Reflux - None. 5. Peroneal Vein: 5.1. Compressibility - Fully compressible: Thrombus - None: Flow - Phasic: Augmentation -Normal: Reflux - None. 6. Great Saphenous Vein: 6.1. Compressibility - Fully compressible: Thrombus - None: Flow - Phasic: Augmentation - Normal: Reflux - None. OTHER FINDINGS: Right: None significant. Left: None significant. IMPRESSION: Right: No evidence of deep or superficial vein thrombosis of the right lower extremity. Normal valve function noted of the right side. Left: No evidence of deep or superficial vein thrombosis of the left lower extremity. Normal valve function noted of the left side.
[2019-01-30] MEDS: Lactated Ringer's 1,000 ML IV SCH ×5 (00:10→22:21)
[2019-01-30] MEDS: Piperacillin/Tazobact 3.375 GM in Sodium Chloride 100 ML IVPB SCH ×2 (04:41→10:58)
[2019-01-30 06:55] LABS: BASO % 0.7 % (0.0-2.0); EOS % 0.7 % (0.0-4.0); HEMOGLOBIN 15.3 g/dL (12.0-18.0); LYMPH # 1.4 K/uL (1.0-4.3); LYMPH % 21.4 % (20.0-40.0); MEAN CELL VOLUME 88.8 fL (80.0-94.0); MEAN CORPUSCULAR HGB CONC 33.8 g/dL (33.0-37.0); MEAN PLATELET VOLUME 7.8 fL (7.2-11.7); MONO # 0.6 K/uL (0.0-0.8); MONO % 8.4 % (0.0-10.0); NEUT # 4.5 K/uL (1.8-7.0); NEUT % 68.8 % (50.0-75.0); RBC 5.11 Mil/uL (4.40-5.90); RED CELL DISTRIBUTION WIDTH 13.2 % (11.5-14.5); WHITE BLOOD COUNT 6.6 K/uL (4.8-10.8)
[2019-01-30 06:57] LABS: ALB/GLOB RATIO 1.4 (1.0-2.1); ALBUMIN 4.2 g/dL (3.5-5.0); ALT/SGPT 376 U/L (21-72); AST/SGOT 191 U/L (17-59); BLOOD UREA NITROGEN 10 mg/dL (9-20); CALCIUM 9.1 mg/dl (8.6-10.4); GFR NON-AFRICAN AMERICAN > 60
--- NOTE | 2019-01-30 08:02 | CP.PCM.PN ---
<Renée Dumont-Anatimani - Last Filed: 01/30/19 07:59> Subjective - Date & Time of Evaluation Date of Evaluation: 01/30/19 Time of Evaluation: 07:59 - Subjective Subjective: Surgery: Dr. Bullard Patient denies pain n/v/f/c. tolerating diet. +flatus. Objective - Vital Signs/Intake and Output Vital Signs (last 24 hours): Temp Pulse Resp BP Pulse Ox 98.3 F 76 20 161/84 H 96 01/30/19 07:00 01/30/19 07:00 01/30/19 07:00 01/30/19 07:00 01/30/19 07:00 Intake and Output: 01/30/19 01/30/19 06:59 18:59 Intake Total 2640 Output Total 1400 Balance 1240 - Medications Medications: Current Medications Acetaminophen (Tylenol 325mg Tab) 650 mg PO Q6 PRN PRN Reason: Fever >100.4 F Hydromorphone HCl (Dilaudid) 0.5 mg IVP Q4H PRN PRN Reason: Pain, moderate (4-7) Piperacillin Sod/Tazobactam (Sod 3.375 gm/ Sodium Chloride) 100 mls @ 200 mls/hr IVPB Q6H [facility]; Protocol Last Admin: 01/30/19 04:41 Dose: 200 mls/hr Lactated Ringer's (Lactated Ringer's) 1,000 mls @ 150 mls/hr IV .Q6H40M [facility] Last Admin: 01/30/19 04:40 Dose: Not Given Ondansetron HCl (Zofran Inj) 4 mg IVP Q6H PRN PRN Reason: Nausea/Vomiting Last Admin: 01/27/19 17:09 Dose: 4 mg Saccharomyces Boulardii (Florastor) 250 mg PO BID [facility] Last Admin: 01/29/19 17:10 Dose: 250 mg - Labs Labs: 01/30/19 06:36 01/30/19 06:36 PT 11.4 SECONDS (9.7-12.2) 01/28/19 07:25 INR 1.0 01/28/19 07:25 APTT 32 SECONDS (21-34) 01/28/19 07:25 - Constitutional Appears: Non-toxic, No Acute Distress - Head Exam Head Exam: ATRAUMATIC, NORMOCEPHALIC - Eye Exam Eye Exam: EOMI, Normal appearance - ENT Exam ENT Exam: Mucous Membranes Moist - Respiratory Exam Respiratory Exam: NORMAL BREATHING PATTERN. absent: Respiratory Distress - Cardiovascular Exam Cardiovascular Exam: REGULAR RHYTHM. absent: Tachycardia - GI/Abdominal Exam GI & Abdominal Exam: Soft. absent: Distended, Guarding, Tenderness - Neurological Exam Neurological Exam: Alert, Awake Assessment and Plan - Assessment and Plan (Free Text) Assessment: 48 y/o male w/ choledocholithiasis, cholecystitis and worsening h yperbilirubenemia Plan: -may need repeat ERCP? -repeat labs in am -no cholecystectomy until liver enzymes normalize -ok for diet from surgical standpoint -will follow -further recs per Dr. Juan Miguel NAQVItobi PGY4 <Glenn Bullard - Last Filed: 02/01/19 18:22> Objective - Vital Signs/Intake and Output Vital Signs (last 24 hours): Temp Pulse Resp BP Pulse Ox 98.6 F 77 20 138/86 96 02/01/19 15:00 02/01/19 15:00 02/01/19 15:00 02/01/19 15:00 02/01/19 15:00 Intake and Output: 02/01/19 02/01/19 06:59 18:59 Intake Total 1000 Output Total 950 Balance 50 - Medications Medications: Current Medications Acetaminophen (Tylenol 325mg Tab) 650 mg PO Q6 PRN PRN Reason: Fever >100.4 F Hydromorphone HCl (Dilaudid) 0.5 mg IVP Q4H PRN PRN Reason: Pain, moderate (4-7) Meropenem 1 gm/ Sodium (Chloride) 100 mls @ 100 mls/hr IVPB Q8H [facility]; Protocol Last Admin: 02/01/19 15:31 Dose: 100 mls/hr Lactated Ringer's (Lactated Ringer's) 1,000 mls @ 100 mls/hr IV .Q10H [facility] Last Admin: 02/01/19 14:39 Dose: Not Given Ondansetron HCl (Zofran Inj) 4 mg IVP Q6H PRN PRN Reason: Nausea/Vomiting Last Admin: 01/27/19 17:09 Dose: 4 mg Potassium Chloride (Klor-Con 10) 20 meq PO ONCE PRN PRN Reason: low K Last Admin: 02/01/19 15:07 Dose: 20 meq Saccharomyces Bosantosdii (Florastor) 250 mg PO BID [facility] Last Admin: 02/01/19 17:16 Dose: 250 mg - Labs Labs: 02/01/19 08:52 02/01/19 08:52 PT 11.4 SECONDS (9.7-12.2) 01/28/19 07:25 INR 1.0 01/28/19 07:25 APTT 32 SECONDS (21-34) 01/28/19 07:25 Attending/Attestation - Attestation I have personally seen and examined this patient.: Yes I have fully participated in the care of the patient.: Yes I have reviewed all pertinent clinical information, including history, physical exam and plan: Yes Notes (Text): Pt was seen and examined at bedside Agree with above note and assessment MRCP reviewed Pt would need repeat ERCP Possible ERCP tomorrow as per GI team [place] current mx Plan leanna pt and in detail.
--- NOTE | 2019-01-30 08:12 | CP.PCM.PN ---
<Irma Keenan - Last Filed: 01/30/19 08:13> Subjective - Date & Time of Evaluation Date of Evaluation: 01/30/19 Time of Evaluation: 07:00 - Subjective Subjective: PGY 5 GI Follow-up Pt seen and examined bedside Denies any abd pain, fever, chills or diaphoresis tolerated diet yesterday denies any BM ROS: 12 point RFOS conducted, neg other than above Objective - Vital Signs/Intake and Output Vital Signs (last 24 hours): Temp Pulse Resp BP Pulse Ox 98.3 F 76 20 161/84 H 96 01/30/19 07:00 01/30/19 07:00 01/30/19 07:00 01/30/19 07:00 01/30/19 07:00 Intake and Output: 01/30/19 01/30/19 06:59 18:59 Intake Total 2640 Output Total 1400 Balance 1240 - Medications Medications: Current Medications Acetaminophen (Tylenol 325mg Tab) 650 mg PO Q6 PRN PRN Reason: Fever >100.4 F Hydromorphone HCl (Dilaudid) 0.5 mg IVP Q4H PRN PRN Reason: Pain, moderate (4-7) Piperacillin Sod/Tazobactam (Sod 3.375 gm/ Sodium Chloride) 100 mls @ 200 mls/hr IVPB Q6H [facility]; Protocol Last Admin: 01/30/19 04:41 Dose: 200 mls/hr Lactated Ringer's (Lactated Ringer's) 1,000 mls @ 150 mls/hr IV .Q6H40M [facility] Last Admin: 01/30/19 04:40 Dose: Not Given Ondansetron HCl (Zofran Inj) 4 mg IVP Q6H PRN PRN Reason: Nausea/Vomiting Last Admin: 01/27/19 17:09 Dose: 4 mg Saccharomyces Boulardii (Florastor) 250 mg PO BID [facility] Last Admin: 01/29/19 17:10 Dose: 250 mg - Labs Labs: 01/30/19 06:36 01/30/19 06:36 PT 11.4 SECONDS (9.7-12.2) 01/28/19 07:25 INR 1.0 01/28/19 07:25 APTT 32 SECONDS (21-34) 01/28/19 07:25 - Constitutional Appears: Non-toxic, No Acute Distress - Head Exam Head Exam: ATRAUMATIC, NORMOCEPHALIC - Eye Exam Eye Exam: Normal appearance - ENT Exam ENT Exam: Mucous Membranes Moist, Normal Exam - Neck Exam Neck Exam: Normal Inspection - Respiratory Exam Respiratory Exam: Clear to Ausculation Bilateral, NORMAL BREATHING PATTERN. absent: Rales, Rhonchi, Wheezes, Respiratory Distress - Cardiovascular Exam Cardiovascular Exam: REGULAR RHYTHM, +S1, +S2 - GI/Abdominal Exam GI & Abdominal Exam: Soft, Normal Bowel Sounds. absent: Distended, Guarding, Rigid, Tenderness, Organomegaly, Rebound - Extremities Exam Extremities Exam: absent: Joint Swelling, Pedal Edema - Neurological Exam Neurological Exam: Alert, Awake, Oriented x3 - Psychiatric Exam Psychiatric exam: Normal Affect, Normal Mood - Skin Skin Exam: Dry, Intact, Normal Color, Warm Assessment and Plan - Assessment and Plan (Free Text) Assessment: Lewis Preston is a 48M w/ hx of HL who presents with RUQ and right flank pain: CT abd revealed possible distal CBD stone ~7.6mm Acute Cholecystitis Choledocholithiasis s/p ERCP 01/27/19; POD #3 sphicterotomy with balloon sweeps Transaminemia, DDx: post-ercp, antibiotics (Day 4 zosyn), cholecystitis Biliary colic hx of HL Plan: -continue to monitor LFTs -AST/ALT improving but T. Bili still rising -etiology unclear -recommend d/c zosyn and starting different abx (ie cipro+flagyl) -repeat LFTs pending in the AM -avoid all hepatotoxic drugs -repeat MRCP 01/29/2019 did not reveal any filling defects in CBD or hepatic -will continue to follow D/W Dr. Madden <Robert Madden - Last Filed: 01/30/19 12:05> Objective - Vital Signs/Intake and Output Vital Signs (last 24 hours): Temp Pulse Resp BP Pulse Ox 98.3 F 76 20 161/84 H 96 01/30/19 07:00 01/30/19 07:00 01/30/19 07:00 01/30/19 07:00 01/30/19 07:00 Intake and Output: 01/30/19 01/30/19 06:59 18:59 Intake Total 2640 Output Total 1400 Balance 1240 - Medications Medications: Current Medications Acetaminophen (Tylenol 325mg Tab) 650 mg PO Q6 PRN PRN Reason: Fever >100.4 F Hydromorphone HCl (Dilaudid) 0.5 mg IVP Q4H PRN PRN Reason: Pain, moderate (4-7) Piperacillin Sod/Tazobactam (Sod 3.375 gm/ Sodium Chloride) 100 mls @ 200 mls/hr IVPB Q6H [facility]; Protocol Last Admin: 01/30/19 10:58 Dose: 200 mls/hr Lactated Ringer's (Lactated Ringer's) 1,000 mls @ 150 mls/hr IV .Q6H40M [facility] Last Admin: 01/30/19 11:22 Dose: Not Given Ondansetron HCl (Zofran Inj) 4 mg IVP Q6H PRN PRN Reason: Nausea/Vomiting Last Admin: 01/27/19 17:09 Dose: 4 mg Saccharomyces Boulardii (Florastor) 250 mg PO BID [facility] Last Admin: 01/29/19 17:10 Dose: 250 mg - Labs Labs: 01/30/19 06:36 01/30/19 06:36 PT 11.4 SECONDS (9.7-12.2) 01/28/19 07:25 INR 1.0 01/28/19 07:25 APTT 32 SECONDS (21-34) 01/28/19 07:25 Attending/Attestation - Attestation I have personally seen and examined this patient.: Yes I have fully participated in the care of the patient.: Yes I have reviewed all pertinent clinical information, including history, physical exam and plan: Yes Notes (Text): 01/30/19 12:02 I have seen and examined patient with GI fellow. No acute events overnight, he is seen resting at side of bed and appears comfortable. He denies abdominal pain, nausea, vomiting, fever/chills. He was able to tolerate PO diet yesterday without difficulty. Review of vitals from today shows elevated BP. Hyperlipidemia Abdominal pain Cholecystitis Choledocholithiasis s/p ERCP with balloon sweep and sphincterotomy Transaminitis - Low fat diet as tolerated - Bilirubin continues to rise, though AST/ALT declining - delayed bilirubin rise can be normal in this clinical setting - HIDA ordered by surgical team, follow up results - Follow up surgical recommendations - Will continue to monitor patient clinical course
--- NOTE | 2019-01-30 09:04 | CP.PCM.PN ---
Subjective - Date & Time of Evaluation Date of Evaluation: 01/30/19 Time of Evaluation: 07:10 - Subjective Subjective: Medicine note ( Dr. Paige Keenan) Patient was seen and examined at bedside, while resting comfortably in bed in no acute distress. Patient states that he is doing well and denies any acute issues or complaints. Patient continues to deny any RUQ pain. Patient denies any symptoms of fever, chills, nausea, vomiting, bowel changes, urinary symptoms and skin color changes. Patient continues to tolerate PO diet without any issues. Objective - Vital Signs/Intake and Output Vital Signs (last 24 hours): Temp Pulse Resp BP Pulse Ox 98.3 F 76 20 161/84 H 96 01/30/19 07:00 01/30/19 07:00 01/30/19 07:00 01/30/19 07:00 01/30/19 07:00 Intake and Output: 01/30/19 01/30/19 06:59 18:59 Intake Total 2640 Output Total 1400 Balance 1240 - Medications Medications: Current Medications Acetaminophen (Tylenol 325mg Tab) 650 mg PO Q6 PRN PRN Reason: Fever >100.4 F Hydromorphone HCl (Dilaudid) 0.5 mg IVP Q4H PRN PRN Reason: Pain, moderate (4-7) Piperacillin Sod/Tazobactam (Sod 3.375 gm/ Sodium Chloride) 100 mls @ 200 mls/hr IVPB Q6H [facility]; Protocol Last Admin: 01/30/19 04:41 Dose: 200 mls/hr Lactated Ringer's (Lactated Ringer's) 1,000 mls @ 150 mls/hr IV .Q6H40M [facility] Last Admin: 01/30/19 04:40 Dose: Not Given Ondansetron HCl (Zofran Inj) 4 mg IVP Q6H PRN PRN Reason: Nausea/Vomiting Last Admin: 01/27/19 17:09 Dose: 4 mg Saccharomyces Boulardii (Florastor) 250 mg PO BID [facility] Last Admin: 01/29/19 17:10 Dose: 250 mg - Labs Labs: 01/30/19 06:36 01/30/19 06:36 PT 11.4 SECONDS (9.7-12.2) 01/28/19 07:25 INR 1.0 01/28/19 07:25 APTT 32 SECONDS (21-34) 01/28/19 07:25 - Constitutional Appears: Well, No Acute Distress - Head Exam Head Exam: ATRAUMATIC, NORMAL INSPECTION - Eye Exam Eye Exam: EOMI, Scleral icterus (Mild ) - ENT Exam ENT Exam: Mucous Membranes Moist - Respiratory Exam Respiratory Exam: Clear to Ausculation Bilateral, NORMAL BREATHING PATTERN. absent: Prolonged Expiratory Phase, Rales, Rhonchi, Wheezes, Respiratory Distress - Cardiovascular Exam Cardiovascular Exam: REGULAR RHYTHM, +S1, +S2. absent: Tachycardia, Clicks, Diastolic murmur, Murmur - GI/Abdominal Exam GI & Abdominal Exam: Soft, Normal Bowel Sounds. absent: Distended, Guarding, Rigid, Tenderness Additional comments: No RUQ pain; negative fowler sign - Extremities Exam Extremities Exam: Normal Inspection. absent: Calf Tenderness, Full ROM, Joint Swelling, Pedal Edema, Tenderness - Back Exam Back Exam: NORMAL INSPECTION. absent: CVA tenderness (L), CVA tenderness (R) - Neurological Exam Neurological Exam: Alert, Awake, Oriented x3 - Psychiatric Exam Psychiatric exam: Normal Affect, Normal Mood - Skin Skin Exam: Normal Color Assessment and Plan (1) Acute cholecystitis Assessment & Plan: onsultations: GI: Dr. Madden * S/p ERCP (sphicterotomy, 01/27/19) General Surgery: Dr. Bullard * Plans for lap cholecystectomy Cardiology: Dr. Brooke---> help appreciated * Preoperative clearance: Remains acceptable risk to proceed with surgery. Imaging * MRCP (01/29/19): Distended gallbladder T1-T2 hypointense signal within the nondependent portion gallbladder lumen; correlate clinically for calculus, air, etc. Mild hepatic steatosis. Too small to characterize 7 mm T2 hyperintensity at the dome, statistically likely cyst or hemangioma. Trace bilateral pleural effusions. * MRCP (01/27/19): 5 millimeter stone within the distal common bile duct with mild extrahepatic biliary dilatation measuring up to 7 millimeters. * Abdomen/Pelvis CT (01/27/19): 1. Large 8 millimeter calculus seen at the most distal aspect of the common bile duct near the uncinate process. Clinical correlation. Dilated common bile duct measuring up to 9 millimeters. 2. Distended gallbladder with mural thickening and mild surrounding inflammatory fat stranding. These changes may represent an acute cholecystitis. Clinical correlation. 3. Prominent prostate measuring up to 5.7 centimeters. * Abdomen US (01/27/19): The CT depiction of a large approximately 7 mm calculus in the most distal common bile duct region is not visualized focus/depicted on this ultrasound image. At this pancreatic head and most distal common bile duct obscuring bowel gas is present. The common bile duct caliber on this exam is borderline prominent as referenced above. It is unknown if this is an interval change for this patient. There are no gallstones within the gallbladder proper in this patient-which is not typical. There are however multiple nonshadowing gallbladder polyps present. No positive ultrasound Fowler sign seen. The gallbladder wall is thickened-compatible with both acute and/or chronic inflammatory changes. Close continued follow-up is recommended. Medications: * Zosyn 3.375gm IV Q6H * LR @ 150mls/hr * Florastor 250mg PO BID * Zofran 4mg IV Q6H PRN (initiated 01/27/19 and discontinued 01/30/19) * Merren 1gm IV Q8H (Initiated 01/30/19) * Dilaudid 0.5mg IV Q6H PRN * Tylenol 650mg PO Q6H PRN Status: Acute (2) Elevated liver enzymes Assessment & Plan: Possibly secondary to ERCP (01/22/19), Zosyn and current acute cholecystitis Repeat MRCP s/p ERCP (01/27/19):Gallbladder appears distended. T1-T2 hypointense signal within the nondependent portion of the gallbladder. There is no intrahepatic biliary ductal dilatation. The limited visualized portions of the common bile duct appears within normal limits in caliber and tapers distally. The pancreatic duct appears within normal limits of caliber. No filling defects are seen in the common bile duct or pancreatic duct. - Liver Enzymes are trending down; will continue to monitor with labs - Hepatitis panel: Negative - PT/PTT: WNL - Cholecystectomy cancelled 01/28/19 due to elevated enzymes Consultation: ID, Dr. Kaba,---> Help appreciated * Recommendation for non-hepatotoxic antibiotics * As per ID management, Zosyn discontinued (Initiated (01/27/19- D/C 4/19/19 and merrem 1gm IV Q8H (initiated 01/30/18) Status: Acute (3) Prophylactic measure Assessment & Plan: GI: Not indicated DVT: SCDs, ambulating; anticoagulation not initiated due to planned lap cholecystectomy All plans and management discussed with Dr. Paige Keenan Status: Acute
[2019-01-30] MEDS: Saccharomyces Boulardi 250 mg Cap PO SCH ×3 (12:45→18:11)
--- NOTE | 2019-01-30 14:18 | CP.PCM.CON ---
History of Present Illness - History of Present Illness History of Present Illness: 48M w/ hx of HL who presents to the ER with complaints of RUQ and right flank pain CT in the ER revealed possible ~7.6 obstructing distal CBD stone. s/p ERCP 01/27/19; POD #3 sphicterotomy with balloon sweeps ID consulted for antibiotic management PSHx: right bunion Social Hx: Denies smoking, illicit drugsl social ETOH Family hx: Denies any hx of GI related malig ROS: 12 point ROS conducted, neg other than above Review of Systems - Review of Systems All systems: reviewed and no additional remarkable complaints except - Constitutional Constitutional: absent: As Per HPI, Anorexia, Chills, Daytime Sleepiness, Excess marianela Sweating, Fatigue, Fever, Frequent Falls, Headache, Increased Appetite, Lethargy, Malaise, Night Sweats, Snoring, Sleep Apnea, Weight Gain, Weight Loss, Weakness, Other - EENT Eyes: As Per HPI Ears: absent: As Per HPI, Decreased Hearing, Ear Discharge, Ear Pain, Tinnitus, Abnormal Hearing, Disequilibrium, Dizziness, Other Nose/Mouth/Throat: absent: As Per HPI, Epistaxis, Nasal Congestion, Nasal Discharge, Nasal Obstruction, Nasal Trauma, Nose Pain, Post Nasal Drip, Sinus Pain, Sinus Pressure, Bleeding Gums, Change in Voice, Dental Pain, Dry Mouth, Dysphagia, Halitosis, Hoarsness, Lip Swelling, Mouth Lesions, Mouth Pain, Odynophagia, Sore Throat, Throat Swelling, Tongue Swelling, Facial Pain, Neck P ain, Neck Mass, Other - Cardiovascular Cardiovascular: absent: As Per HPI, Acrocyanosis, Chest Pain, Chest Pain at Rest, Chest Pain with Activity, Claudication, Diaphoresis, Dyspnea, Dyspnea on Exertion, Edema, Irregular Heart Rhythm, Pain Radiating to Arm/Neck/Jaw, Leg Edema, Leg Ulcers, Lightheadedness, Orthopnea, Palpitations, Paroxysmal Nocturnal Dyspnea, Pedal Edema, Radiating Pain, Rapid Heart Rate, Slow Heart Rate, Syncope, Other - Respiratory Respiratory: absent: As Per HPI, Cough, Dyspnea, Hemoptysis, Dyspnea on Exertion, Wheezing, Snoring, Stridor, Pain on Inspiration, Chest Congestion, Excessive Mucous Production, Change in Mucous Color, Pain with Coughing, Other - Gastrointestinal Gastrointestinal: As Per HPI, Abdominal Pain - Genitourinary Genitourinary: absent: As Per HPI, Change in Urinary Stream, Difficulty Urinating, Dysuria, Flank Pain, Hematuria, Pyuria, Nocturia, Urinary Incontinence, Urinary Frequency, Urinary Hesitance, Urinary Urgency, Voiding Freq/Small Amts, Freq UTI, Hx Renal/Bladder Calculi, Hx /Renal Surgery, Bladder Distension, Other - Musculoskeletal Musculoskeletal: absent: As Per HPI, Abnormal Gait, Arthralgias, Atrophy, Back Pain, Deformity, Joint Swelling, Limited Range of Motion, Loss of Height, Muscle Cramps, Muscle Weakness, Myalgias, Neck Pain, Numbness, Radiating Pain into Limb, Stiffness, Tingling, Other - Integumentary Integumentary: absent: As Per HPI, Acne, Alopecia, Bleeding Lesions, Change in Hair, Change in Nails, Change in Pigmentation, Changing Lesions, Dry Skin, Erythema, Furuncle, Hirsutism, Lesions, New Lesions, Non-Healing Lesions, Photosensitivity, Pruritus, Rash, Skin Pain, Skin Ulcer, Sores, Striae, Swelling, Unusual Bruising, Wounds, Jaundice, Other - Neurological Neurological: absent: As Per HPI, Abnormal Gait, Abnormal Hearing, Abnormal Movements, Abnormal Speech, Behavioral Changes, Burning Sensations, Confusion, Convulsions, Disequilibrium, Dizziness, Numbness, Focal Weakness, Frequent Falls, Headaches, Lack of Coordination, Loss of Vision, Memory Loss, Paresthesias, Radicular Pain, Restless Legs, Sensory Deficit, Syncope, Tingling, Tremor, Vertigo, Weakness, Other Visual Disturbances, Other - Psychiatric Psychiatric: absent: As Per HPI, Abnormal Sleep Pattern, Anhedonia, Anxiety, Auditory Hallucinations, Behavioral Changes, Change in Appetite, Change in Libido, Confusion, Depression, Difficulty Concentrating, Hallucinations, Homicidal Ideation, Hopelessness, Irritability, Memory Loss, Mood Swings, Panic Attacks, Paranoia, Suicidal Ideation, Visual Hallucinations, Tactile Hallucina tions, Other - Endocrine Endocrine: absent: As Per HPI, Change in Body Appearance, Change in Libido, Cold Intolorance, Deepening of Voice, Excessive Sweating, Fatigue, Flushing, Heat Intolorance, Increase in Ring/Shoe/Hat Size, Palpitations, Polydipsia, Polypha yaritza, Polyuria, Other - Hematologic/Lymphatic Hematologic: absent: As Per HPI, Easy Bleeding, Easy Bruising, Lymphadenopathy, Other Past Patient History - Past Medical History & Family History Past Medical History?: Yes - Past Social History Smoking Status: Never Smoked - CARDIAC Hx Hypercholesterolemia: Yes - MUSCULOSKELETAL/RHEUMATOLOGICAL Hx Falls: No - PSYCHIATRIC Hx Substance Use: No - SURGICAL HISTORY Hx Surgeries: No - ANESTHESIA Hx Anesthesia: No Hx Anesthesia Reactions: No Hx Malignant Hyperthermia: No Has any member of the family had a problem w/ anesthesia?: No Meds Allergies/Adverse Reactions: Allergies Allergy/AdvReac Type Severity Reaction Status Date / Time ibuprofen Allergy Mild Verified 01/26/19 23:47 - Medications Medications: Current Medications Acetaminophen (Tylenol 325mg Tab) 650 mg PO Q6 PRN PRN Reason: Fever >100.4 F Hydromorphone HCl (Dilaudid) 0.5 mg IVP Q4H PRN PRN Reason: Pain, moderate (4-7) Piperacillin Sod/Tazobactam (Sod 3.375 gm/ Sodium Chloride) 100 mls @ 200 mls/hr IVPB Q6H [facility]; Protocol Last Admin: 01/30/19 10:58 Dose: 200 mls/hr Lactated Ringer's (Lactated Ringer's) 1,000 mls @ 150 mls/hr IV .Q6H40M [facility] Last Admin: 01/30/19 11:22 Dose: Not Given Ondansetron HCl (Zofran Inj) 4 mg IVP Q6H PRN PRN Reason: Nausea/Vomiting Last Admin: 01/27/19 17:09 Dose: 4 mg Saccharomyces Boulardii (Florastor) 250 mg PO BID [facility] Last Admin: 01/30/19 12:59 Dose: 250 mg Physical Exam - Constitutional Appears: Non-toxic, No Acute Distress, Chronically Ill - Head Exam Head Exam: ATRAUMATIC, NORMAL INSPECTION, NORMOCEPHALIC - Eye Exam Eye Exam: EOMI, PERRL, Scleral icterus Pupil Exam: NORMAL ACCOMODATION, PERRL - ENT Exam ENT Exam: Mucous Membranes Moist, Normal Exam - Neck Exam Neck exam: Positive for: Normal Inspection. Negative for: Lymphadenopathy - Respiratory Exam Respiratory Exam: Clear to Auscultation Bilateral, NORMAL BREATHING PATTERN - Cardiovascular Exam Cardiovascular Exam: REGULAR RHYTHM, +S1, +S2 - GI/Abdominal Exam GI & Abdominal Exam: Diminished Bowel Sounds, Distended, Soft. absent: Guarding, Rebound, Rigid, Tenderness - Rectal Exam Rectal Exam: Deferred - Exam Exam: NORMAL INSPECTION - Extremities Exam Extremities exam: Positive for: normal inspection, pedal pulses present. Negative for: calf tenderness, pedal edema, tenderness - Back Exam Back exam: NORMAL INSPECTION. absent: CVA tenderness (L), CVA tenderness (R), paraspinal tenderness, rash noted - Neurological Exam Neurological exam: Alert, CN II-XII Intact, Normal Gait, Oriented x3, Reflexes Normal - Psychiatric Exam Psychiatric exam: Normal Affect, Normal Mood - Skin Skin Exam: Dry, Intact, Normal Color, Warm Results - Vital Signs Recent Vital Signs: Last Vital Signs Temp 98.3 F 01/30/19 07:00 Pulse 76 01/30/19 07:00 Resp 20 01/30/19 07:00 BP 161/84 H 01/30/19 07:00 Pulse Ox 96 01/30/19 07:00 - Labs Result Diagrams: 01/30/19 06:36 01/30/19 06:36 Labs: Laboratory Results - last 24 hr 01/30/19 01/30/19 06:36 06:36 WBC 6.6 RBC 5.11 Hgb 15.3 Hct 45.3 MCV 88.8 MCH 30.0 MCHC 33.8 RDW 13.2 Plt Count 243 MPV 7.8 Neut % (Auto) 68.8 Lymph % (Auto) 21.4 Gooding % (Auto) 8.4 Eos % (Auto) 0.7 Baso % (Auto) 0.7 Neut # (Auto) 4.5 Lymph # (Auto) 1.4 Gooding # (Auto) 0.6 Eos # (Auto) 0.0 Baso # (Auto) 0.0 Sodium 137 Potassium 3.8 Chloride 101 Carbon Dioxide 28 Anion Gap 11 BUN 10 Creatinine 0.9 Est GFR ( Amer) > 60 Est GFR (Non-Af Amer) > 60 Random Glucose 108 Calcium 9.1 Phosphorus 3.3 Magnesium 2.2 Total Bilirubin 6.7 H AST 191 H ALT 376 H Alkaline Phosphatase 145 H Total Protein 7.1 Albumin 4.2 Globulin 2.9 Albumin/Globulin Ratio 1.4 Assessment & Plan (1) Acute cholecystitis Status: Acute (2) Elevated liver enzymes Status: Acute - Assessment and Plan (Free Text) Assessment: 48M w/ hx of HL who presents to the ER with complaints of RUQ and right flank pain CT in the ER revealed possible ~7.6 obstructing distal CBD stone. s/p ERCP 01/27/19; POD #3 sphicterotomy with balloon sweeps now with ascending cholangitis and negative blood cultures will d/c zosyn and add merrem repeat HIDA pending possible cholecystectomy
[2019-01-30] MEDS: Meropenem 1 GM in Sodium Chloride 0.9% 100 ML IVPB SCH ×2 (16:48→22:30)
--- NOTE | 2019-01-30 18:02 | CP.PCM.PN ---
Subjective - Date & Time of Evaluation Date of Evaluation: 01/30/19 - Subjective Subjective: patient seen and examined at bedside today no nausea no vomiting no diarrhea no shortness of breath no dizziness no fever Objective - Vital Signs/Intake and Output Vital Signs (last 24 hours): Temp Pulse Resp BP Pulse Ox 97.9 F 77 20 167/99 H 98 01/30/19 17:44 01/30/19 17:44 01/30/19 17:44 01/30/19 17:44 01/30/19 17:44 Intake and Output: 01/30/19 01/30/19 06:59 18:59 Intake Total 2640 Output Total 1400 Balance 1240 - Medications Medications: Current Medications Acetaminophen (Tylenol 325mg Tab) 650 mg PO Q6 PRN PRN Reason: Fever >100.4 F Hydromorphone HCl (Dilaudid) 0.5 mg IVP Q4H PRN PRN Reason: Pain, moderate (4-7) Lactated Ringer's (Lactated Ringer's) 1,000 mls @ 150 mls/hr IV .Q6H40M [facility] Last Admin: 01/30/19 11:22 Dose: Not Given Meropenem 1 gm/ Sodium (Chloride) 100 mls @ 100 mls/hr IVPB Q8H [facility]; Protocol Last Admin: 01/30/19 16:48 Dose: 100 mls/hr Ondansetron HCl (Zofran Inj) 4 mg IVP Q6H PRN PRN Reason: Nausea/Vomiting Last Admin: 01/27/19 17:09 Dose: 4 mg Saccharomyces Boulardii (Florastor) 250 mg PO BID [facility] Last Admin: 01/30/19 12:59 Dose: 250 mg - Labs Labs: 01/30/19 06:36 01/30/19 06:36 PT 11.4 SECONDS (9.7-12.2) 01/28/19 07:25 INR 1.0 01/28/19 07:25 APTT 32 SECONDS (21-34) 01/28/19 07:25 - Constitutional Appears: Well - Head Exam Head Exam: ATRAUMATIC, NORMAL INSPECTION, NORMOCEPHALIC - Eye Exam Eye Exam: EOMI, Normal appearance, PERRL Pupil Exam: NORMAL ACCOMODATION, PERRL - ENT Exam ENT Exam: Mucous Membranes Moist, Normal Exam - Neck Exam Neck Exam: Full ROM, Normal Inspection. absent: Lymphadenopathy - Respiratory Exam Respiratory Exam: Decreased Breath Sounds - Cardiovascular Exam Cardiovascular Exam: REGULAR RHYTHM, +S1, +S2 - GI/Abdominal Exam GI & Abdominal Exam: Soft, Diminished Bowel Sounds - Rectal Exam Rectal Exam: Deferred - Neurological Exam Neurological Exam: Oriented x3 Assessment and Plan - Assessment and Plan (Free Text) Plan: dilaudid florastor lactated ringers pipercallin sodium tazabactam tylenol zofran medications reviewed labs reviewed vitals reviewed
[2019-01-31] MEDS: Meropenem 1 GM in Sodium Chloride 0.9% 100 ML IVPB SCH ×3 (06:36→22:39)
[2019-01-31 07:25] LABS: BASO % 0.7 % (0.0-2.0); EOS # 0.1 K/uL (0.0-0.7); EOS % 1.5 % (0.0-4.0); HEMOGLOBIN 15.1 g/dL (12.0-18.0); LYMPH # 1.7 K/uL (1.0-4.3); LYMPH % 26.7 % (20.0-40.0); MEAN CELL VOLUME 89.9 fL (80.0-94.0); MEAN CORPUSCULAR HEMOGLOBIN 30.3 pg (27.0-31.0); MEAN CORPUSCULAR HGB CONC 33.8 g/dL (33.0-37.0); MONO # 0.6 K/uL (0.0-0.8); MONO % 8.8 % (0.0-10.0); NEUT # 3.9 K/uL (1.8-7.0); NEUT % 62.3 % (50.0-75.0); RBC 4.96 Mil/uL (4.40-5.90); RED CELL DISTRIBUTION WIDTH 13.4 % (11.5-14.5); WHITE BLOOD COUNT 6.3 K/uL (4.8-10.8)
[2019-01-31 07:33] LABS: ALB/GLOB RATIO 1.5 (1.0-2.1); ALT/SGPT 405 U/L (21-72); AST/SGOT 184 U/L (17-59); BLOOD UREA NITROGEN 12 mg/dL (9-20); CALCIUM 8.8 mg/dl (8.6-10.4); GFR NON-AFRICAN AMERICAN > 60
--- NOTE | 2019-01-31 08:15 | CP.PCM.PN ---
<Triston Dumont - Last Filed: 01/31/19 08:11> Subjective - Date & Time of Evaluation Date of Evaluation: 01/31/19 Time of Evaluation: 08:11 - Subjective Subjective: Surgery: Dr. Bullard Patient feeling well today. Denies f/c/n/v. Denies any pain in the abdomen. Reports flatus and BM. Tolerating diet. Objective - Vital Signs/Intake and Output Vital Signs (last 24 hours): Temp Pulse Resp BP Pulse Ox 98.2 F 76 20 138/91 H 95 01/31/19 07:00 01/31/19 07:00 01/31/19 07:00 01/31/19 07:00 01/31/19 07:00 Intake and Output: 01/31/19 01/31/19 06:59 18:59 Intake Total 1520 Output Total 1200 Balance 320 - Medications Medications: Current Medications Acetaminophen (Tylenol 325mg Tab) 650 mg PO Q6 PRN PRN Reason: Fever >100.4 F Hydromorphone HCl (Dilaudid) 0.5 mg IVP Q4H PRN PRN Reason: Pain, moderate (4-7) Meropenem 1 gm/ Sodium (Chloride) 100 mls @ 100 mls/hr IVPB Q8H [facility]; Protocol Last Admin: 01/31/19 06:36 Dose: 100 mls/hr Lactated Ringer's (Lactated Ringer's) 1,000 mls @ 100 mls/hr IV .Q10H [facility] Last Admin: 01/30/19 22:21 Dose: 100 mls/hr Ondansetron HCl (Zofran Inj) 4 mg IVP Q6H PRN PRN Reason: Nausea/Vomiting Last Admin: 01/27/19 17:09 Dose: 4 mg Saccharomyces Boulardii (Florastor) 250 mg PO BID [facility] Last Admin: 01/30/19 18:11 Dose: 250 mg - Labs Labs: 01/31/19 07:02 01/31/19 07:02 PT 11.4 SECONDS (9.7-12.2) 01/28/19 07:25 INR 1.0 01/28/19 07:25 APTT 32 SECONDS (21-34) 01/28/19 07:25 - Constitutional Appears: Non-toxic, No Acute Distress - Head Exam Head Exam: ATRAUMATIC, NORMOCEPHALIC - Eye Exam Eye Exam: Normal appearance, Scleral icterus - ENT Exam ENT Exam: Mucous Membranes Moist - Respiratory Exam Respiratory Exam: NORMAL BREATHING PATTERN. absent: Respiratory Distress - Cardiovascular Exam Cardiovascular Exam: REGULAR RHYTHM. absent: Tachycardia - GI/Abdominal Exam GI & Abdominal Exam: Soft. absent: Distended, Guarding, Tenderness, Rebound Assessment and Plan - Assessment and Plan (Free Text) Assessment: 48 y/o male w/ choledocholithiasis, cholecystitis s/p ERCP with stone removal and sphincterotomy w/ persistent transaminitis Plan: -bili level improving w/ cessation of Zosyn -avoid hepatotoxic medications -cont reg diet -abx per -possible OR saturday for cholecystectomy -d/w Dr. Bullard [facility] PGY4 <Glenn Bullard - Last Filed: 02/01/19 18:24> Objective - Vital Signs/Intake and Output Vital Signs (last 24 hours): Temp Pulse Resp BP Pulse Ox 98.6 F 77 20 138/86 96 02/01/19 15:00 02/01/19 15:00 02/01/19 15:00 02/01/19 15:00 02/01/19 15:00 Intake and Output: 02/01/19 02/01/19 06:59 18:59 Intake Total 1000 Output Total 950 Balance 50 - Medications Medications: Current Medications Acetaminophen (Tylenol 325mg Tab) 650 mg PO Q6 PRN PRN Reason: Fever >100.4 F Hydromorphone HCl (Dilaudid) 0.5 mg IVP Q4H PRN PRN Reason: Pain, moderate (4-7) Meropenem 1 gm/ Sodium (Chloride) 100 mls @ 100 mls/hr IVPB Q8H [facility]; Protocol Last Admin: 02/01/19 15:31 Dose: 100 mls/hr Lactated Ringer's (Lactated Ringer's) 1,000 mls @ 100 mls/hr IV .Q10H [facility] Last Admin: 02/01/19 14:39 Dose: Not Given Ondansetron HCl (Zofran Inj) 4 mg IVP Q6H PRN PRN Reason: Nausea/Vomiting Last Admin: 01/27/19 17:09 Dose: 4 mg Potassium Chloride (Klor-Con 10) 20 meq PO ONCE PRN PRN Reason: low K Last Admin: 02/01/19 15:07 Dose: 20 meq Saccharomyces Boulardii (Florastor) 250 mg PO BID [facility] Last Admin: 02/01/19 17:16 Dose: 250 mg - Labs Labs: 02/01/19 08:52 02/01/19 08:52 PT 11.4 SECONDS (9.7-12.2) 01/28/19 07:25 INR 1.0 01/28/19 07:25 APTT 32 SECONDS (21-34) 01/28/19 07:25 Attending/Attestation - Attestation I have fully participated in the care of the patient.: Yes I have reviewed all pertinent clinical information, including history, physical exam and plan: Yes Notes (Text): Repeat ERCP done today Blood clots and obstruction relieved LFTS is trending down OR for Lap Cholecystectomy on Saturday c.w current mx Plan d.w pt and primary team
[2019-01-31] MEDS ORDERED: Indomethacin 50 MG Suppository PR ONE (10:11)
[2019-01-31] MEDS ORDERED: Glucagon Recombinant 1 mg Inj ONE (10:20)
--- NOTE | 2019-01-31 10:24 | NM ---
Date of service: 01/30/2019 PROCEDURE: Nuclear Medicine Hepatobiliary Scan HISTORY: evaluate cbd COMPARISON: MRCP 01/29/2019 TECHNIQUE: Eight mCi of technetium 99m Mebrofenin was administered intravenously. Planar images of the abdomen were obtained at 5 min intervals to 60 mins. Delayed images including 24 hour delayed imaging were also obtained. FINDINGS: LIVER: There is homogeneous uptake by the liver without focal area of photopenia identified. However, no appreciable excretion by the liver into the central intrahepatic biliary ducts or common bile duct is noted. There is similar appearance at 4 hours and 7-1/2 hours. 24 hour imaging also fails to reveal evidence of significant excretion into the central biliary ducts or common bile duct. COMMON BILE DUCT: Nonvisualized. GALLBLADDER: Nonvisualized. SMALL BOWEL: Nonvisualized. IMPRESSION: No appreciable filling of the common bile duct, gallbladder, or small bowel up to 24 hours. There is uptake within the liver without excretion into the central hepatic biliary ducts or common bile duct. Although findings may reflect hepatocellular disease, bile duct obstruction and cystic duct obstruction cannot be excluded.
[2019-01-31] MEDS ORDERED: Lactated Ringer's 500 ML IV ONE ×2 (10:49)
[2019-01-31] MEDS ORDERED: Midazolam 2 MG/2 ML VIAL ONE ×2 (11:34→11:44)
[2019-01-31] MEDS ORDERED: Propofol 10 mg/ml Inj (20 ML) ONE ×2 (11:34→11:48)
--- NOTE | 2019-01-31 11:34 | CP.PCM.PN ---
Subjective - Date & Time of Evaluation Date of Evaluation: 01/31/19 Time of Evaluation: 11:29 - Subjective Subjective: Feels well. Denies any abdominal pain. Tolerating PO diet. Fabiana LOBO completed this am, with nonvisualization of GB and CBD. Objective - Vital Signs/Intake and Output Vital Signs (last 24 hours): Temp Pulse Resp BP Pulse Ox 98.2 F 76 20 138/91 H 95 01/31/19 07:00 01/31/19 07:00 01/31/19 07:00 01/31/19 07:00 01/31/19 07:00 Intake and Output: 01/31/19 01/31/19 06:59 18:59 Intake Total 1520 Output Total 1200 Balance 320 - Medications Medications: Current Medications Acetaminophen (Tylenol 325mg Tab) 650 mg PO Q6 PRN PRN Reason: Fever >100.4 F Hydromorphone HCl (Dilaudid) 0.5 mg IVP Q4H PRN PRN Reason: Pain, moderate (4-7) Meropenem 1 gm/ Sodium (Chloride) 100 mls @ 100 mls/hr IVPB Q8H [facility]; Protocol Last Admin: 01/31/19 06:36 Dose: 100 mls/hr Lactated Ringer's (Lactated Ringer's) 1,000 mls @ 100 mls/hr IV .Q10H [facility] Last Admin: 01/30/19 22:21 Dose: 100 mls/hr Ondansetron HCl (Zofran Inj) 4 mg IVP Q6H PRN PRN Reason: Nausea/Vomiting Last Admin: 01/27/19 17:09 Dose: 4 mg Saccharomyces Boulardii (Florastor) 250 mg PO BID [facility] Last Admin: 01/30/19 18:11 Dose: 250 mg - Labs Labs: 01/31/19 07:02 01/31/19 07:02 PT 11.4 SECONDS (9.7-12.2) 01/28/19 07:25 INR 1.0 01/28/19 07:25 APTT 32 SECONDS (21-34) 01/28/19 07:25 - Constitutional Appears: Well, Non-toxic, Toxic, No Acute Distress - Head Exam Head Exam: ATRAUMATIC, NORMAL INSPECTION - Eye Exam Eye Exam: EOMI, Normal appearance Pupil Exam: NORMAL ACCOMODATION, PERRL - Neck Exam Neck Exam: Full ROM - Respiratory Exam Respiratory Exam: Clear to Ausculation Bilateral, NORMAL BREATHING PATTERN - Cardiovascular Exam Cardiovascular Exam: RRR, +S1, +S2 - GI/Abdominal Exam GI & Abdominal Exam: Soft, Normal Bowel Sounds. absent: Tenderness Assessment and Plan (1) Elevated liver enzymes Status: Acute - Assessment and Plan (Free Text) Assessment: 48 yo M who p/w abdominal pain found to have choledocholithiasis s/p ERCP done on 01/27/19 with sphincterotomy and balloon sweep with removal of sludge/stone but with increasing LFTs, ? related to abx use, but with HIDA showing nonvisualization of CBD and GB. Plan: -tbili trending down, but HIDA still with nonvisualization of CBD and GB -remains npo -will repeat ERCP with balloon sweep and possible stent placement -possible cholecystectomy on Saturday as per surgery -d/w pt and pt's
[2019-01-31] MEDS: Lactated Ringer's 1,000 ML IV SCH ×2 (14:38→18:00)
[2019-01-31] MEDS: Saccharomyces Boulardi 250 mg Cap PO SCH ×2 (14:40→17:36)
--- NOTE | 2019-01-31 14:49 | CP.PCM.PN ---
Subjective - Date & Time of Evaluation Date of Evaluation: 01/31/19 Time of Evaluation: 09:00 - Subjective Subjective: 48 y/o male w/ choledocholithiasis, cholecystitis s/p ERCP with stone removal and sphincterotomy w/ persistent transaminitis less jaundice no fever awake alert' no N/V/D/ Abd pain Objective - Vital Signs/Intake and Output Vital Signs (last 24 hours): Temp Pulse Resp BP Pulse Ox 97.5 F L 66 20 122/75 100 01/31/19 13:30 01/31/19 13:30 01/31/19 13:30 01/31/19 13:30 01/31/19 13:30 Intake and Output: 01/31/19 01/31/19 06:59 18:59 Intake Total 1520 0 Output Total 1200 Balance 320 0 - Medications Medications: Current Medications Acetaminophen (Tylenol 325mg Tab) 650 mg PO Q6 PRN PRN Reason: Fever >100.4 F Hydromorphone HCl (Dilaudid) 0.5 mg IVP Q4H PRN PRN Reason: Pain, moderate (4-7) Meropenem 1 gm/ Sodium (Chloride) 100 mls @ 100 mls/hr IVPB Q8H [facility]; Protocol Last Admin: 01/31/19 14:38 Dose: 100 mls/hr Lactated Ringer's (Lactated Ringer's) 1,000 mls @ 100 mls/hr IV .Q10H [facility] Last Admin: 01/31/19 14:38 Dose: 100 mls/hr Ondansetron HCl (Zofran Inj) 4 mg IVP Q6H PRN PRN Reason: Nausea/Vomiting Last Admin: 01/27/19 17:09 Dose: 4 mg Saccharomyces Boulardii (Florastor) 250 mg PO BID [facility] Last Admin: 01/31/19 14:40 Dose: 250 mg - Labs Labs: 01/31/19 07:02 01/31/19 07:02 PT 11.4 SECONDS (9.7-12.2) 01/28/19 07:25 INR 1.0 01/28/19 07:25 APTT 32 SECONDS (21-34) 01/28/19 07:25 - Constitutional Appears: Non-toxic, Chronically Ill - Head Exam Head Exam: ATRAUMATIC, NORMAL INSPECTION, NORMOCEPHALIC - Eye Exam Eye Exam: EOMI, Normal appearance, PERRL, Scleral icterus Pupil Exam: NORMAL ACCOMODATION, PERRL - ENT Exam ENT Exam: Mucous Membranes Moist, Normal Exam - Neck Exam Neck Exam: Full ROM, Normal Inspection. absent: Lymphadenopathy - Respiratory Exam Respiratory Exam: Clear to Ausculation Bilateral, NORMAL BREATHING PATTERN - Cardiovascular Exam Cardiovascular Exam: REGULAR RHYTHM, +S1, +S2. absent: Murmur - GI/Abdominal Exam GI & Abdominal Exam: Soft, Normal Bowel Sounds. absent: Tenderness - Rectal Exam Rectal Exam: Deferred - Exam Exam: NORMAL INSPECTION - Extremities Exam Extremities Exam: Full ROM, Normal Capillary Refill, Normal Inspection. absent: Joint Swelling, Pedal Edema - Back Exam Back Exam: NORMAL INSPECTION - Neurological Exam Neurological Exam: Alert, Awake, CN II-XII Intact, Normal Gait, Oriented x3 - Psychiatric Exam Psychiatric exam: Normal Affect, Normal Mood - Skin Skin Exam: Dry, Intact, Normal Color, Warm Assessment and Plan (1) Acute cholecystitis Status: Acute (2) Elevated liver enzymes Status: Acute - Assessment and Plan (Free Text) Assessment: s/p ERCP resolving hyperbilirubinemia transaminitis cholecystitis for OR in am
--- NOTE | 2019-01-31 19:31 | CP.PCM.PN ---
Subjective - Date & Time of Evaluation Date of Evaluation: 01/31/19 - Subjective Subjective: patient seen today no nausea no vomiting no diarrhea no fever no dizziness no shortness of breath Objective - Vital Signs/Intake and Output Vital Signs (last 24 hours): Temp Pulse Resp BP Pulse Ox 98.6 F 70 20 148/89 97 01/31/19 17:37 01/31/19 15:00 01/31/19 15:00 01/31/19 15:00 01/31/19 15:00 Intake and Output: 01/31/19 02/01/19 18:59 06:59 Intake Total 0 Balance 0 - Medications Medications: Current Medications Acetaminophen (Tylenol 325mg Tab) 650 mg PO Q6 PRN PRN Reason: Fever >100.4 F Hydromorphone HCl (Dilaudid) 0.5 mg IVP Q4H PRN PRN Reason: Pain, moderate (4-7) Meropenem 1 gm/ Sodium (Chloride) 100 mls @ 100 mls/hr IVPB Q8H [facility]; Protocol Last Admin: 01/31/19 14:38 Dose: 100 mls/hr Lactated Ringer's (Lactated Ringer's) 1,000 mls @ 100 mls/hr IV .Q10H [facility] Last Admin: 01/31/19 14:38 Dose: 100 mls/hr Ondansetron HCl (Zofran Inj) 4 mg IVP Q6H PRN PRN Reason: Nausea/Vomiting Last Admin: 01/27/19 17:09 Dose: 4 mg Saccharomyces Boulardii (Florastor) 250 mg PO BID [facility] Last Admin: 01/31/19 17:36 Dose: 250 mg - Labs Labs: 01/31/19 07:02 01/31/19 07:02 PT 11.4 SECONDS (9.7-12.2) 01/28/19 07:25 INR 1.0 01/28/19 07:25 APTT 32 SECONDS (21-34) 01/28/19 07:25 - Constitutional Appears: Well - Head Exam Head Exam: ATRAUMATIC, NORMAL INSPECTION, NORMOCEPHALIC - Eye Exam Eye Exam: EOMI, Normal appearance, PERRL Pupil Exam: NORMAL ACCOMODATION, PERRL - ENT Exam ENT Exam: Mucous Membranes Moist, Normal Exam - Neck Exam Neck Exam: Full ROM, Normal Inspection. absent: Lymphadenopathy - Respiratory Exam Respiratory Exam: Decreased Breath Sounds - Cardiovascular Exam Cardiovascular Exam: REGULAR RHYTHM, +S1, +S2 - GI/Abdominal Exam GI & Abdominal Exam: Soft, Diminished Bowel Sounds - Rectal Exam Rectal Exam: Deferred - Neurological Exam Neurological Exam: Oriented x3 Assessment and Plan - Assessment and Plan (Free Text) Plan: medications reviewed labs reviewed vitals reviewed dilaudid florastor lactated ringers pipercallin sodium tazabactam tylenol zofran
[2019-02-01] MEDS: Lactated Ringer's 1,000 ML IV SCH ×3 (03:59→20:18)
[2019-02-01] MEDS: Meropenem 1 GM in Sodium Chloride 0.9% 100 ML IVPB SCH ×3 (06:50→22:33)
--- NOTE | 2019-02-01 07:27 | CP.PCM.PN ---
<Triston Dumont - Last Filed: 02/01/19 07:25> Subjective - Date & Time of Evaluation Date of Evaluation: 02/01/19 Time of Evaluation: 07:25 - Subjective Subjective: Surgery: Dr. Bullard Patient doing well. NO complaints. S/p ERCP yesterday, agreeable to cholecystectomy on Saturday. Objective - Vital Signs/Intake and Output Vital Signs (last 24 hours): Temp Pulse Resp BP Pulse Ox 98.1 F 65 20 147/83 97 01/31/19 23:55 01/31/19 23:55 01/31/19 23:55 01/31/19 23:55 01/31/19 23:55 Intake and Output: 02/01/19 02/01/19 06:59 18:59 Intake Total 1000 Output Total 950 Balance 50 - Medications Medications: Current Medications Acetaminophen (Tylenol 325mg Tab) 650 mg PO Q6 PRN PRN Reason: Fever >100.4 F Hydromorphone HCl (Dilaudid) 0.5 mg IVP Q4H PRN PRN Reason: Pain, moderate (4-7) Meropenem 1 gm/ Sodium (Chloride) 100 mls @ 100 mls/hr IVPB Q8H [facility]; Protocol Last Admin: 02/01/19 06:50 Dose: 100 mls/hr Lactated Ringer's (Lactated Ringer's) 1,000 mls @ 100 mls/hr IV .Q10H [facility] Last Admin: 02/01/19 03:59 Dose: 100 mls/hr Ondansetron HCl (Zofran Inj) 4 mg IVP Q6H PRN PRN Reason: Nausea/Vomiting Last Admin: 01/27/19 17:09 Dose: 4 mg Saccharomyces Boulardii (Florastor) 250 mg PO BID [facility] Last Admin: 01/31/19 17:36 Dose: 250 mg - Labs Labs: 01/31/19 07:02 01/31/19 07:02 PT 11.4 SECONDS (9.7-12.2) 01/28/19 07:25 INR 1.0 01/28/19 07:25 APTT 32 SECONDS (21-34) 01/28/19 07:25 - Constitutional Appears: Non-toxic, No Acute Distress - Head Exam Head Exam: ATRAUMATIC, NORMOCEPHALIC - Eye Exam Eye Exam: EOMI - ENT Exam ENT Exam: Mucous Membranes Moist - Respiratory Exam Respiratory Exam: NORMAL BREATHING PATTERN - Cardiovascular Exam Cardiovascular Exam: REGULAR RHYTHM - GI/Abdominal Exam GI & Abdominal Exam: Guarding, Soft. absent: Distended, Tenderness Assessment and Plan - Assessment and Plan (Free Text) Assessment: 48 y/o male w/ choledocholithiasis cholecystitis s/p ERCP x2 for OR saturday for lap emily Plan: -NPO pmn -f/u daily labs -IVFs -hold AC -further recs per Dr. Bullard [place] PGY4 <Glenn Bullard B - Last Filed: 02/01/19 18:26> Objective - Vital Signs/Intake and Output Vital Signs (last 24 hours): Temp Pulse Resp BP Pulse Ox 98.6 F 77 20 138/86 96 02/01/19 15:00 02/01/19 15:00 02/01/19 15:00 02/01/19 15:00 02/01/19 15:00 Intake and Output: 02/01/19 02/01/19 06:59 18:59 Intake Total 1000 Output Total 950 Balance 50 - Medications Medications: Current Medications Acetaminophen (Tylenol 325mg Tab) 650 mg PO Q6 PRN PRN Reason: Fever >100.4 F Hydromorphone HCl (Dilaudid) 0.5 mg IVP Q4H PRN PRN Reason: Pain, moderate (4-7) Meropenem 1 gm/ Sodium (Chloride) 100 mls @ 100 mls/hr IVPB Q8H [facility]; Protocol Last Admin: 02/01/19 15:31 Dose: 100 mls/hr Lactated Ringer's (Lactated Ringer's) 1,000 mls @ 100 mls/hr IV .Q10H [facility] Last Admin: 02/01/19 14:39 Dose: Not Given Ondansetron HCl (Zofran Inj) 4 mg IVP Q6H PRN PRN Reason: Nausea/Vomiting Last Admin: 01/27/19 17:09 Dose: 4 mg Potassium Chloride (Klor-Con 10) 20 meq PO ONCE PRN PRN Reason: low K Last Admin: 02/01/19 15:07 Dose: 20 meq Saccharomyces Boulardii (Florastor) 250 mg PO BID [facility] Last Admin: 02/01/19 17:16 Dose: 250 mg - Labs Labs: 02/01/19 08:52 02/01/19 08:52 PT 11.4 SECONDS (9.7-12.2) 01/28/19 07:25 INR 1.0 01/28/19 07:25 APTT 32 SECONDS (21-34) 01/28/19 07:25 Attending/Attestation - Attestation I have fully participated in the care of the patient.: Yes I have reviewed all pertinent clinical information, including history, physical exam and plan: Yes Notes (Text): Pt is Repeat ERCP yesterday LFTs is trending down OR for Lap Cholecystectomy tomorrrow Consent NPO, IVF IV antibiotics Plan d.w pt in detail
[2019-02-01 09:00] LABS: BASO % 0.5 % (0.0-2.0); EOS % 0.6 % (0.0-4.0); HEMOGLOBIN 14.8 g/dL (12.0-18.0); LYMPH # 1.7 K/uL (1.0-4.3); LYMPH % 23.1 % (20.0-40.0); MEAN CORPUSCULAR HEMOGLOBIN 29.7 pg (27.0-31.0); MEAN PLATELET VOLUME 7.8 fL (7.2-11.7); MONO # 0.4 K/uL (0.0-0.8); MONO % 5.1 % (0.0-10.0); NEUT # 5.1 K/uL (1.8-7.0); NEUT % 70.7 % (50.0-75.0); NRBC % 0.1 % (0.0-2.0); RBC 4.99 Mil/uL (4.40-5.90); RED CELL DISTRIBUTION WIDTH 13.6 % (11.5-14.5); WHITE BLOOD COUNT 7.2 K/uL (4.8-10.8)
[2019-02-01] MEDS: Saccharomyces Boulardi 250 mg Cap PO SCH ×2 (09:12→17:16)
[2019-02-01 09:26] LABS: ALB/GLOB RATIO 1.5 (1.0-2.1); ALBUMIN 4.3 g/dL (3.5-5.0); ALT/SGPT 376 U/L (21-72); AST/SGOT 136 U/L (17-59); BLOOD UREA NITROGEN 10 mg/dL (9-20); CALCIUM 9.1 mg/dl (8.6-10.4); GFR NON-AFRICAN AMERICAN > 60
--- NOTE | 2019-02-01 09:34 | CP.PCM.PN ---
<Vania Thompson - Last Filed: 02/01/19 11:47> Subjective - Date & Time of Evaluation Date of Evaluation: 02/01/19 Time of Evaluation: 09:31 - Subjective Subjective: Gastroenterology Fellow/PGY6 Progress Note Patient ambulating in room. Tolerating diet. Denies abdominal pain. Notes bowel movement yesterday. A 12-point review of systems negative except for as above. Objective - Vital Signs/Intake and Output Vital Signs (last 24 hours): Temp Pulse Resp BP Pulse Ox 98.2 F 69 20 149/88 98 02/01/19 08:23 02/01/19 08:23 02/01/19 08:23 02/01/19 08:23 02/01/19 08:23 Intake and Output: 02/01/19 02/01/19 06:59 18:59 Intake Total 1000 Output Total 950 Balance 50 - Medications Medications: Current Medications Acetaminophen (Tylenol 325mg Tab) 650 mg PO Q6 PRN PRN Reason: Fever >100.4 F Hydromorphone HCl (Dilaudid) 0.5 mg IVP Q4H PRN PRN Reason: Pain, moderate (4-7) Meropenem 1 gm/ Sodium (Chloride) 100 mls @ 100 mls/hr IVPB Q8H [facility]; Protocol Last Admin: 02/01/19 06:50 Dose: 100 mls/hr Lactated Ringer's (Lactated Ringer's) 1,000 mls @ 100 mls/hr IV .Q10H [facility] Last Admin: 02/01/19 03:59 Dose: 100 mls/hr Ondansetron HCl (Zofran Inj) 4 mg IVP Q6H PRN PRN Reason: Nausea/Vomiting Last Admin: 01/27/19 17:09 Dose: 4 mg Saccharomyces Boulardii (Florastor) 250 mg PO BID STEVIE Last Admin: 02/01/19 09:12 Dose: 250 mg - Labs Labs: 02/01/19 08:52 02/01/19 08:52 PT 11.4 SECONDS (9.7-12.2) 01/28/19 07:25 INR 1.0 01/28/19 07:25 APTT 32 SECONDS (21-34) 01/28/19 07:25 - Constitutional Appears: Non-toxic, No Acute Distress - Head Exam Head Exam: ATRAUMATIC, NORMOCEPHALIC - Eye Exam Eye Exam: EOMI, PERRL, Scleral icterus Pupil Exam: PERRL. absent: Miosis, Mydriatic - ENT Exam ENT Exam: Mucous Membranes Moist, Normal Oropharynx - Neck Exam Neck Exam: Full ROM, Normal Inspection - Respiratory Exam Respiratory Exam: Clear to Ausculation Bilateral. absent: Rales, Rhonchi, Wheezes - Cardiovascular Exam Cardiovascular Exam: RRR, +S1, +S2. absent: Gallop, Rubs - GI/Abdominal Exam GI & Abdominal Exam: Soft, Normal Bowel Sounds. absent: Distended, Firm, Gu arding, Rigid, Tenderness, Organomegaly, Rebound - Extremities Exam Extremities Exam: Normal Inspection - Neurological Exam Neurological Exam: Alert, Awake - Psychiatric Exam Psychiatric exam: Normal Affect, Normal Mood - Skin Skin Exam: Dry, Intact, Normal Color, Warm Assessment and Plan - Assessment and Plan (Free Text) Assessment: 48 year old male with PMH of HLD presenting with abdominal pain. Active treatment of choledocholithiasis s/p ERCP 01/27/19 with sphincterotomy/balloon sweep/ sludge/stone removal complicated by worsening LFTs. Repeat HIDA confirmed non-visualization of CBD and GB. Plan: -s/p ERCP 01/31 with hemobilia/clot at sphincterotmy site -s/p balloon sweep with small clots/sludge/stone removal -s/p fully covered metal stent placement of distal CBD -surgery - OR Saturday for cholecystectomy -LFTs trending down -on Zosyn -tolerating low fat diet -requires repeat ERCP in 2-3 months for stent removal, office information for Dr. Liz provided -will follow clinical course <Keila Dexter - Last Filed: 02/01/19 12:07> Objective - Vital Signs/Intake and Output Vital Signs (last 24 hours): Temp Pulse Resp BP Pulse Ox 98.2 F 69 20 149/88 98 02/01/19 08:23 02/01/19 08:23 02/01/19 08:23 02/01/19 08:23 02/01/19 08:23 Intake and Output: 02/01/19 02/01/19 06:59 18:59 Intake Total 1000 Output Total 950 Balance 50 - Medications Medications: Current Medications Acetaminophen (Tylenol 325mg Tab) 650 mg PO Q6 PRN PRN Reason: Fever >100.4 F Hydromorphone HCl (Dilaudid) 0.5 mg IVP Q4H PRN PRN Reason: Pain, moderate (4-7) Meropenem 1 gm/ Sodium (Chloride) 100 mls @ 100 mls/hr IVPB Q8H [facility]; Protocol Last Admin: 02/01/19 06:50 Dose: 100 mls/hr Lactated Ringer's (Lactated Ringer's) 1,000 mls @ 100 mls/hr IV .Q10H [facility] Last Admin: 02/01/19 03:59 Dose: 100 mls/hr Ondansetron HCl (Zofran Inj) 4 mg IVP Q6H PRN PRN Reason: Nausea/Vomiting Last Admin: 01/27/19 17:09 Dose: 4 mg Saccharomyces Boulardii (Florastor) 250 mg PO BID [facility] Last Admin: 02/01/19 09:12 Dose: 250 mg - Labs Labs: 02/01/19 08:52 02/01/19 08:52 PT 11.4 SECONDS (9.7-12.2) 01/28/19 07:25 INR 1.0 01/28/19 07:25 APTT 32 SECONDS (21-34) 01/28/19 07:25 Assessment and Plan (1) Elevated liver enzymes Status: Acute Attending/Attestation - Attestation I have personally seen and examined this patient.: Yes I have fully participated in the care of the patient.: Yes I have reviewed all pertinent clinical information, including history, physical exam and plan: Yes Notes (Text): 02/01/19 12:06 I have seen and examined the patient with the GI fellow. Pt doing well. Denies any abdominal pain. Tbili downtrending. Planned for lap cholecystectomy as per surgery tmrw. Stable from GI standpoint and will sign off. Please call with questions. Left my office information with the pt so that he may f/u after hospitalization.
[2019-02-01] MEDS ORDERED: Potassium Chloride 10 mEq ER Tab PO PRN (14:47)
--- NOTE | 2019-02-01 16:22 | CP.PCM.PN ---
Subjective - Date & Time of Evaluation Date of Evaluation: 02/01/19 - Subjective Subjective: patient seen today yellow less moderate to complex care lft trednig down d/w pt no nausea no vomiting no diarrhea no fever no dizziness no shortness of breath Objective - Vital Signs/Intake and Output Vital Signs (last 24 hours): Temp Pulse Resp BP Pulse Ox 98.6 F 77 20 138/86 96 02/01/19 15:00 02/01/19 15:00 02/01/19 15:00 02/01/19 15:00 02/01/19 15:00 Intake and Output: 02/01/19 02/01/19 06:59 18:59 Intake Total 1000 Output Total 950 Balance 50 - Medications Medications: Current Medications Acetaminophen (Tylenol 325mg Tab) 650 mg PO Q6 PRN PRN Reason: Fever >100.4 F Hydromorphone HCl (Dilaudid) 0.5 mg IVP Q4H PRN PRN Reason: Pain, moderate (4-7) Meropenem 1 gm/ Sodium (Chloride) 100 mls @ 100 mls/hr IVPB Q8H [facility]; Protocol Last Admin: 02/01/19 15:31 Dose: 100 mls/hr Lactated Ringer's (Lactated Ringer's) 1,000 mls @ 100 mls/hr IV .Q10H [facility] Last Admin: 02/01/19 14:39 Dose: Not Given Ondansetron HCl (Zofran Inj) 4 mg IVP Q6H PRN PRN Reason: Nausea/Vomiting Last Admin: 01/27/19 17:09 Dose: 4 mg Potassium Chloride (Klor-Con 10) 20 meq PO ONCE PRN PRN Reason: low K Last Admin: 02/01/19 15:07 Dose: 20 meq Saccharomyces Boulardii (Florastor) 250 mg PO BID [facility] Last Admin: 02/01/19 09:12 Dose: 250 mg - Labs Labs: 02/01/19 08:52 02/01/19 08:52 PT 11.4 SECONDS (9.7-12.2) 01/28/19 07:25 INR 1.0 01/28/19 07:25 APTT 32 SECONDS (21-34) 01/28/19 07:25 - Constitutional Appears: Well - Head Exam Head Exam: ATRAUMATIC, NORMAL INSPECTION, NORMOCEPHALIC - Eye Exam Eye Exam: EOMI, Normal appearance, PERRL Pupil Exam: NORMAL ACCOMODATION, PERRL - ENT Exam ENT Exam: Mucous Membranes Moist, Normal Exam - Neck Exam Neck Exam: Full ROM, Normal Inspection. absent: Lymphadenopathy - Respiratory Exam Respiratory Exam: Decreased Breath Sounds - Cardiovascular Exam Cardiovascular Exam: REGULAR RHYTHM, +S1, +S2 - GI/Abdominal Exam GI & Abdominal Exam: Soft, Diminished Bowel Sounds - Rectal Exam Rectal Exam: Deferred - Neurological Exam Neurological Exam: Oriented x3 Assessment and Plan (1) Acute cholecystitis Status: Acute (2) Elevated liver enzymes Status: Acute (3) Elevated liver enzymes Status: Acute (4) Prophylactic measure Status: Acute - Assessment and Plan (Free Text) Plan: medications reviewed labs reviewed no vitals reviewed pt And wants to go home Potassium supplementations today SGOT decreased significantly now been low 100s SGOT and low 100s Bilirubin is 2.1 Creatinine is 0.01 Seen by GI today Status post ERCP on 420 Status post balloon service with small colostomy sludge and stone removal Surgery follow-up for possible cholecystectomy Continue IV antibiotic Tolerating low-fat diet Patient advised that needs to follow-up with the ERCP Patient advised to follow-up with the PMD upon discharge who is Dr. Augustin possible lap emily toorrow am dilaudid florastor lactated ringers pipercallin sodium tazabactam tylenol zofran medications reviewed labs reviewed vitals reviewed
[2019-02-02] MEDS: Lactated Ringer's 1,000 ML IV SCH ×3 (00:05→20:33)
[2019-02-02 05:40] LABS: BASO # 0.1 K/uL (0.0-0.2); BASO % 0.8 % (0.0-2.0); EOS # 0.1 K/uL (0.0-0.7); EOS % 1.8 % (0.0-4.0); HEMOGLOBIN 14.5 g/dL (12.0-18.0); LYMPH # 2.1 K/uL (1.0-4.3); LYMPH % 29.6 % (20.0-40.0); MEAN CELL VOLUME 90.2 fL (80.0-94.0); MEAN CORPUSCULAR HEMOGLOBIN 29.3 pg (27.0-31.0); MEAN CORPUSCULAR HGB CONC 32.5 g/dL (33.0-37.0); MEAN PLATELET VOLUME 7.8 fL (7.2-11.7); MONO # 0.4 K/uL (0.0-0.8); NEUT # 4.4 K/uL (1.8-7.0); NEUT % 61.8 % (50.0-75.0); RBC 4.94 Mil/uL (4.40-5.90); RED CELL DISTRIBUTION WIDTH 13.7 % (11.5-14.5); WHITE BLOOD COUNT 7.1 K/uL (4.8-10.8)
[2019-02-02 05:48] LABS: ALB/GLOB RATIO 1.3 (1.0-2.1); ALT/SGPT 354 U/L (21-72); AST/SGOT 127 U/L (17-59); BLOOD UREA NITROGEN 9 mg/dL (9-20); CALCIUM 9.6 mg/dl (8.6-10.4); GFR NON-AFRICAN AMERICAN > 60
[2019-02-02] MEDS: Meropenem 1 GM in Sodium Chloride 0.9% 100 ML IVPB SCH ×3 (06:39→22:32)
[2019-02-02] MEDS ORDERED: Bupivacaine Liposomal Inj 20 ml INFIL ONE (09:01)
[2019-02-02] MEDS ORDERED: Bupivacaine 0.25% 20 ML INJ IJ ONE (09:03)
[2019-02-02] MEDS ORDERED: Sodium Chloride 0.9% 40 ML IV ONE (09:04)
[2019-02-02] MEDS ORDERED: Lidocaine/Epinephrine 1% 1:100000 10 ML IJ ONE (09:04)
[2019-02-02] MEDS ORDERED: Propofol 10 mg/ml Inj (20 ML) ONE (09:23)
[2019-02-02] MEDS ORDERED: Midazolam 2 MG/2 ML VIAL ONE (09:23)
--- NOTE | 2019-02-02 10:14 | CP.PCM.PN ---
Subjective - Date & Time of Evaluation Date of Evaluation: 02/02/19 Time of Evaluation: 07:05 - Subjective Subjective: Medicine progress note for Dr. Keenan Patient seen and examined at bedside. No acute events overnight. Patient is NPO and aware of her procedure today with surgery team. Patient denies fever, chills, shortness of breath, chest pain, nausea, vomiting, or diarrhea. Objective - Vital Signs/Intake and Output Vital Signs (last 24 hours): Temp Pulse Resp BP Pulse Ox 98.3 F 74 20 135/77 96 02/02/19 07:00 02/02/19 07:00 02/02/19 07:00 02/02/19 07:00 02/02/19 07:00 Intake and Output: 02/02/19 02/02/19 06:59 18:59 Intake Total 0 Balance 0 - Medications Medications: Current Medications Acetaminophen (Tylenol 325mg Tab) 650 mg PO Q6 PRN PRN Reason: Fever >100.4 F Meropenem 1 gm/ Sodium (Chloride) 100 mls @ 100 mls/hr IVPB Q8H [facility]; Protocol Last Admin: 02/02/19 06:39 Dose: 100 mls/hr Lactated Ringer's (Lactated Ringer's) 1,000 mls @ 100 mls/hr IV .Q10H [facility] Last Admin: 02/02/19 00:05 Dose: Not Given Ondansetron HCl (Zofran Inj) 4 mg IVP Q6H PRN PRN Reason: Nausea/Vomiting Last Admin: 01/27/19 17:09 Dose: 4 mg Potassium Chloride (Klor-Con 10) 20 meq PO ONCE PRN PRN Reason: low K Last Admin: 02/01/19 15:07 Dose: 20 meq Saccharomyces Boulardii (Florastor) 250 mg PO BID [facility] Last Admin: 02/01/19 17:16 Dose: 250 mg - Labs Labs: 02/02/19 05:20 02/02/19 05:20 PT 11.4 SECONDS (9.7-12.2) 01/28/19 07:25 INR 1.0 01/28/19 07:25 APTT 32 SECONDS (21-34) 01/28/19 07:25 - Additional Findings Additional findings: - Constitutional Appears: Non-toxic, No Acute Distress - Head Exam Head Exam: ATRAUMATIC, NORMOCEPHALIC - Eye Exam Eye Exam: EOMI, PERRL, Scleral icterus Pupil Exam: PERRL. absent: Miosis, Mydriatic - ENT Exam ENT Exam: Mucous Membranes Moist, Normal Oropharynx - Neck Exam Neck Exam: Full ROM, Normal Inspection - Respiratory Exam Respiratory Exam: Clear to Ausculation Bilateral. absent: Rales, Rhonchi, Wheezes - Cardiovascular Exam Cardiovascular Exam: RRR, +S1, +S2. absent: Gallop, Rubs - GI/Abdominal Exam GI & Abdominal Exam: Soft, Normal Bowel Sounds. absent: Distended, Firm, Guarding, Rigid, Tenderness, Organomegaly, Rebound - Extremities Exam Extremities Exam: Normal Inspection - Neurological Exam Neurological Exam: Alert, Awake - Psychiatric Exam Psychiatric exam: Normal Affect, Normal Mood - Skin Skin Exam: Dry, Intact, Normal Color, Warm Assessment and Plan - Assessment and Plan (Free Text) Assessment: (1) Acute cholecystitis Assessment & Plan: onsultations: General Surgery: Dr. Bullard * Planned for lap cholecystectomy this AM GI: Dr. Madden * S/p ERCP (sphicterotomy, 01/27/19) Cardiology: Dr. Brooke---> help appreciated * Preoperative clearance: Remains acceptable risk to proceed with surgery Imaging * MRCP (01/29/19): Distended gallbladder T1-T2 hypointense signal within the nondependent portion gallbladder lumen; correlate clinically for calculus, air, etc. Mild hepatic steatosis. Too small to characterize 7 mm T2 hyperintensity at the dome, statistically likely cyst or hemangioma. Trace bilateral pleural effusions. * MRCP (01/27/19): 5 millimeter stone within the distal common bile duct with mild extrahepatic biliary dilatation measuring up to 7 millimeters. * Abdomen/Pelvis CT (01/27/19): 1. Large 8 millimeter calculus seen at the most distal aspect of the common bile duct near the uncinate process. Clinical correlation. Dilated common bile duct measuring up to 9 millimeters. 2. Distended gallbladder with mural thickening and mild surrounding inflammatory fat stranding. These changes may represent an acute cholecystitis. Clinical correlation. 3. Prominent prostate measuring up to 5.7 centimeters. * Abdomen US (01/27/19): The CT depiction of a large approximately 7 mm calculus in the most distal common bile duct region is not visualized focus/depicted on this ultrasound image. At this pancreatic head and most distal common bile duct obscuring bowel gas is present. The common bile duct caliber on this exam is borderline prominent as referenced above. It is unknown if this is an interval change for this patient. There are no gallstones within the gallbladder proper in this patient-which is not typical. There are however multiple nonshadowing gallbladder polyps present. No positive ultrasound Fowler sign seen. The gallbladder wall is thickened-compatible with both acute and/or chronic inflammatory changes. Close continued follow-up is recommended. Medications: * Zosyn 3.375gm IV Q6H * LR @ 100mls/hr * Florastor 250mg PO BID * Zofran 4mg IV Q6H PRN (initiated 01/27/19 and discontinued 01/30/19) * Merren 1gm IV Q8H (Initiated 01/30/19) * Tylenol 650mg PO Q6H PRN Status: Acute (2) Elevated liver enzymes Assessment & Plan: Down trending LFT Possibly secondary to ERCP (01/22/19), Zosyn and current acute cholecystitis Repeat MRCP s/p ERCP (01/27/19):Gallbladder appears distended. T1-T2 hypointense signal within the nondependent portion of the gallbladder. There is no intrahepatic biliary ductal dilatation. The limited visualized portions of the common bile duct appears within normal limits in caliber and tapers distally. The pancreatic duct appears within normal limits of caliber. No filling defects are seen in the common bile duct or pancreatic duct. - Liver Enzymes are trending down; will continue to monitor with labs - Hepatitis panel: Negative - PT/PTT: WNL - Cholecystectomy scheduled today Consultation: ID, Dr. Kaba,---> Help appreciated * Recommendation for non-hepatotoxic antibiotics * As per ID management, Zosyn discontinued (Initiated (01/27/19- D/C 01/30/19 and merrem 1gm IV Q8H (initiated 01/30/18) * Blood and urine cultures: no growth (01/30/19) Status: Acute (3) Prophylactic measure Assessment & Plan: GI: Not indicated DVT: SCDs, ambulating; anticoagulation not initiated due to planned lap cholecystectomy All plans and management discussed with Dr. Paige Keenan Status: Acute
[2019-02-02] MEDS ORDERED: Neostigmine 1:1000 (1 mg/ml) Inj ONE (10:50)
--- NOTE | 2019-02-02 11:14 | PCM.SURG1 ---
Surgeon's Initial Post Op Note - Surgeon's Notes Surgeon: Dr. Bullard Welding Estimator: Merchant SHANNONY2, Pamela SHEPHERD Type of Anesthesia: General Endo Anesthesia Administered By: Dr. Baker Pre-Operative Diagnosis: Choledocholithiasis, Acute Cholecystitis Operative Findings: Inflammed edematous gallbladder, dialated cystic duct. for details see op note Post-Operative Diagnosis: Acute Cholecystitis Operation Performed: 1. Robotic Cholecystectomy. 2. TAP block Specimen/Specimens Removed: 1. Gallbladder Estimated Blood Loss: EBL {In ML}: 5 Drains Used: No Drains Post-Op Condition: Good Date of Surgery/Procedure: 02/02/19 Time of Surgery/Procedure: 11:13
[2019-02-02] MEDS ORDERED: HYDROmorphone 0.5 mg/0.5 ml ISec IVP PRN (11:16)
--- NOTE | 2019-02-02 12:01 | CP.PCM.PN ---
Subjective - Date & Time of Evaluation Date of Evaluation: 02/02/19 Time of Evaluation: 08:00 - Subjective Subjective: s/p cholecystectomy tolerated well Objective - Vital Signs/Intake and Output Vital Signs (last 24 hours): Temp Pulse Resp BP Pulse Ox 98.3 F 74 20 135/77 96 02/02/19 07:00 02/02/19 07:00 02/02/19 07:00 02/02/19 07:00 02/02/19 07:00 Intake and Output: 02/02/19 02/02/19 06:59 18:59 Intake Total 840 Balance 840 - Medications Medications: Current Medications Acetaminophen (Tylenol 325mg Tab) 650 mg PO Q6 PRN PRN Reason: Fever >100.4 F Hydromorphone HCl (Dilaudid) 0.5 mg IVP Q5M PRN PRN Reason: Pain, severe (8-10) Stop: 02/02/19 13:16 Meropenem 1 gm/ Sodium (Chloride) 100 mls @ 100 mls/hr IVPB Q8H [facility]; Protocol Last Admin: 02/02/19 06:39 Dose: 100 mls/hr Lactated Ringer's (Lactated Ringer's) 1,000 mls @ 100 mls/hr IV .Q10H [facility] Last Admin: 02/02/19 00:05 Dose: Not Given Ondansetron HCl (Zofran Inj) 4 mg IVP Q6H PRN PRN Reason: Nausea/Vomiting Last Admin: 01/27/19 17:09 Dose: 4 mg Ondansetron HCl (Zofran Inj) 4 mg IVP ONCE PRN PRN Reason: Nausea/Vomiting Stop: 02/02/19 13:17 Potassium Chloride (Klor-Con 10) 20 meq PO ONCE PRN PRN Reason: low K Last Admin: 02/01/19 15:07 Dose: 20 meq Saccharomyces Boulardii (Florastor) 250 mg PO BID [facility] Last Admin: 02/01/19 17:16 Dose: 250 mg - Labs Labs: 02/02/19 05:20 02/02/19 05:20 PT 11.4 SECONDS (9.7-12.2) 01/28/19 07:25 INR 1.0 01/28/19 07:25 APTT 32 SECONDS (21-34) 01/28/19 07:25 - Constitutional Appears: Non-toxic, No Acute Distress, Chronically Ill - Head Exam Head Exam: ATRAUMATIC, NORMAL INSPECTION, NORMOCEPHALIC - Eye Exam Eye Exam: EOMI, Normal appearance, PERRL Pupil Exam: NORMAL ACCOMODATION, PERRL - ENT Exam ENT Exam: Mucous Membranes Moist, Normal Exam - Neck Exam Neck Exam: Full ROM, Normal Inspection. absent: Lymphadenopathy - Respiratory Exam Respiratory Exam: Clear to Ausculation Bilateral, NORMAL BREATHING PATTERN - Cardiovascular Exam Cardiovascular Exam: REGULAR RHYTHM, +S1, +S2. absent: Murmur - GI/Abdominal Exam GI & Abdominal Exam: Distended, Soft, Tenderness, Diminished Bowel Sounds - Rectal Exam Rectal Exam: Deferred - Exam Exam: NORMAL INSPECTION - Extremities Exam Extremities Exam: Full ROM, Normal Capillary Refill, Normal Inspection. absent: Joint Swelling, Pedal Edema - Back Exam Back Exam: NORMAL INSPECTION - Neurological Exam Neurological Exam: Alert, Awake, CN II-XII Intact, Normal Gait, Oriented x3 - Psychiatric Exam Psychiatric exam: Normal Affect, Normal Mood - Skin Skin Exam: Dry, Intact, Normal Color, Warm Assessment and Plan (1) Acute cholecystitis Status: Acute (2) Elevated liver enzymes Status: Acute - Assessment and Plan (Free Text) Assessment: cont IV rx s/p cholecystectomy
[2019-02-02] MEDS: Saccharomyces Boulardi 250 mg Cap PO SCH ×2 (13:59→17:05)
--- NOTE | 2019-02-02 15:10 | RAD ---
Date of service: 01/31/2019 PROCEDURE: Intraoperative Fluoroscopy. HISTORY: HEMOBILIA FINDINGS: Fluoroscopic assistance was provided for ERCP and common duct stent placement. Please refer to the operative report from SANDRA Stone DR, MD. Total fluoroscopic time (continuous mode) utilized during the procedure 129.5. seconds. Dose report: DLP [id number] (mGy/m2)
--- NOTE | 2019-02-02 18:03 | CP.PCM.PN ---
Objective - Vital Signs/Intake and Output Vital Signs (last 24 hours): Temp Pulse Resp BP Pulse Ox 98.4 F 86 86 H 129/79 97 02/02/19 15:30 02/02/19 15:30 02/02/19 15:30 02/02/19 12:35 02/02/19 15:30 Intake and Output: 02/02/19 02/02/19 06:59 18:59 Intake Total 1040 Balance 1040 - Medications Medications: Current Medications Acetaminophen (Tylenol 325mg Tab) 650 mg PO Q6 PRN PRN Reason: Fever >100.4 F Meropenem 1 gm/ Sodium (Chloride) 100 mls @ 100 mls/hr IVPB Q8H [facility]; Protocol Last Admin: 02/02/19 15:05 Dose: 100 mls/hr Lactated Ringer's (Lactated Ringer's) 1,000 mls @ 100 mls/hr IV .Q10H [facility] Last Admin: 02/02/19 17:05 Dose: 100 mls/hr Ondansetron HCl (Zofran Inj) 4 mg IVP Q6H PRN PRN Reason: Nausea/Vomiting Last Admin: 01/27/19 17:09 Dose: 4 mg Potassium Chloride (Klor-Con 10) 20 meq PO ONCE PRN PRN Reason: low K Last Admin: 02/01/19 15:07 Dose: 20 meq Saccharomyces Boulardii (Florastor) 250 mg PO BID [facility] Last Admin: 02/02/19 17:05 Dose: 250 mg - Labs Labs: 02/02/19 05:20 02/02/19 05:20 PT 11.4 SECONDS (9.7-12.2) 01/28/19 07:25 INR 1.0 01/28/19 07:25 APTT 32 SECONDS (21-34) 01/28/19 07:25 Assessment and Plan - Assessment and Plan (Free Text) Assessment: Patient admitted with acute cholecystitis, post surgery, seen and examined. Denies any pain , ambulating well, no acute pain. Discussed with DR Lakhani, plan to discharge home if cleared by the surgery.
--- NOTE | 2019-02-02 20:21 | CP.PCM.PN ---
Subjective - Date & Time of Evaluation Date of Evaluation: 02/02/19 - Subjective Subjective: patient examined today no nausea no vomiting no diarrhea no dizziness no fever no shortness of breath Objective - Vital Signs/Intake and Output Vital Signs (last 24 hours): Temp Pulse Resp BP Pulse Ox 98.4 F 86 86 H 129/79 97 02/02/19 15:30 02/02/19 15:30 02/02/19 15:30 02/02/19 12:35 02/02/19 15:30 Intake and Output: 02/02/19 02/03/19 18:59 06:59 Intake Total 1040 Balance 1040 - Medications Medications: Current Medications Acetaminophen (Tylenol 325mg Tab) 650 mg PO Q6 PRN PRN Reason: Fever >100.4 F Meropenem 1 gm/ Sodium (Chloride) 100 mls @ 100 mls/hr IVPB Q8H [facility]; Protocol Last Admin: 02/02/19 15:05 Dose: 100 mls/hr Lactated Ringer's (Lactated Ringer's) 1,000 mls @ 100 mls/hr IV .Q10H [facility] Last Admin: 02/02/19 17:05 Dose: 100 mls/hr Ondansetron HCl (Zofran Inj) 4 mg IVP Q6H PRN PRN Reason: Nausea/Vomiting Last Admin: 01/27/19 17:09 Dose: 4 mg Potassium Chloride (Klor-Con 10) 20 meq PO ONCE PRN PRN Reason: low K Last Admin: 02/01/19 15:07 Dose: 20 meq Saccharomyces Boulardii (Florastor) 250 mg PO BID [facility] Last Admin: 02/02/19 17:05 Dose: 250 mg - Labs Labs: 02/02/19 05:20 02/02/19 05:20 PT 11.4 SECONDS (9.7-12.2) 01/28/19 07:25 INR 1.0 01/28/19 07:25 APTT 32 SECONDS (21-34) 01/28/19 07:25 - Constitutional Appears: Well - Head Exam Head Exam: ATRAUMATIC, NORMAL INSPECTION, NORMOCEPHALIC - Eye Exam Eye Exam: EOMI, Normal appearance, PERRL Pupil Exam: NORMAL ACCOMODATION, PERRL - ENT Exam ENT Exam: Mucous Membranes Moist, Normal Exam - Neck Exam Neck Exam: Full ROM, Normal Inspection. absent: Lymphadenopathy - Respiratory Exam Respiratory Exam: Decreased Breath Sounds - Cardiovascular Exam Cardiovascular Exam: REGULAR RHYTHM, +S1, +S2 - GI/Abdominal Exam GI & Abdominal Exam: Soft, Diminished Bowel Sounds - Rectal Exam Rectal Exam: Deferred - Neurological Exam Neurological Exam: Oriented x3 Assessment and Plan (1) Acute cholecystitis Status: Acute (2) Elevated liver enzymes Status: Acute (3) Elevated liver enzymes Status: Acute (4) Prophylactic measure Status: Acute - Assessment and Plan (Free Text) Plan: vitals reviewed labs reviewed medications reviewed dilaudid florastor lactated ringers pipercallin sodium tazabactam tylenol zofran patient for surgery today morning
--- NOTE | 2019-02-02 22:26 | OP ---
PROCEDURE DATE: 02/02/2019 PREOPERATIVE DIAGNOSES: 1. Chronic cholecystitis and cholelithiasis. 2. Common bile duct stones status post endoscopic retrograde cholangiopancreatography. 3. Abnormal liver function tests. POSTOPERATIVE DIAGNOSES: 1. Chronic cholecystitis and cholelithiasis. 2. Extensive postinflammatory adhesions. 3. Common bile duct stones status post endoscopic retrograde cholangiopancreatography. PROCEDURES: 1. Robotic cholecystectomy. 2. Robotic extensive lysis of adhesion. 3. Robotic Indocyanine fluoroscopy and angiography. 4. Laparoscopic bilateral transverse abdominis plane block placement. SURGEON: Glenn Bullard MD CLEANER AND TRIMMER: JOAO Myers and Coy Thomas, PGY-2 resident. TYPE OF ANESTHESIA: General endotracheal tube anesthesia. ESTIMATED BLOOD LOSS: Around 10 mL. DRAIN: None. PATHOLOGY: Gallbladder with gallstones was sent for the pathology. COMPLICATIONS: None. INTRAOPERATIVE FINDINGS: The patient had extensive postinflammatory adhesions as well as adhesions of the omentum to the Calot's triangle as well as to the duodenum to the Calot's triangle and there were postinflammatory changes and extensive lysis of adhesion was done and enterolysis was done. On intraoperative findings during the Firefly, the patient was found to have large common bile duct as well as large cystic duct. On intraoperative steps, this 48-year-old male was diagnosed with a chronic cholecystitis and cholelithiasis and the patient had a common bile duct stone and the patient underwent ERCP and the patient also had a repeat ERCP due to the blood clots and stent placement. The patient was consented for the robotic cholecystectomy and possible open. DESCRIPTION OF PROCEDURE: The patient was brought to the OR, placed supine on the operating table. After induction of the anesthesia, the abdomen was prepped and draped in the usual sterile fashion. The supraumbilical transverse incision was made using the open technique. Peritoneal cavity was entered. Pneumo was created. Another three 8 mm port was placed in the upper abdomen. Robot was brought in. Camera arm as well as arm 1 and arm 2 was docked and the gallbladder appeared to be taken edematous and it was retracted cranially. The patient had omental adhesions as well as duodenal adhesions and that was lysed, and after proper enterolysis and after proper lysis of adhesion, the Calot's triangle was identified and the anterior and posterior leaflet was dissected. The intraoperative Firefly was used to identify the ductal anatomy. The patient found to have extremely thick and edematous Calot's triangle and the patient had large cystic duct as well as dilated common bile duct and the cystic artery was also identified. The cystic duct was clipped at three places and cut in between two clips in the gallbladder and the cystic artery was also clipped three places and cut in between two clips nearby gallbladder and gallbladder was dissected free from the gallbladder fossa, taken in an EndoCatch bag, taken out through the umbilical port site and sent off the table for the pathology. There was a proper hemostasis in each and every part of the procedure and now the bilateral TAP block was given. The 30:30 mL of Exparel with saline was injected into the transverse abdominis muscles plane area, and after proper TAP block, all the instrument was taken out. All the ports were taken out under vision. Pneumo was deflated and umbilical port site was closed in a two layers, the fascia with 0 Vicryl interrupted suture, skin with 4-0 Monocryl, and dry sterile dressing was applied. The specimen was sent off the table for the pathology and the patient was extubated in OR and sent to the postanesthesia care unit in stable condition. Glenn Bullard MD
[2019-02-03 02:40] VITALS: RESP 20
[2019-02-03] MEDS: Lactated Ringer's 1,000 ML IV SCH (06:30)
[2019-02-03] MEDS: Meropenem 1 GM in Sodium Chloride 0.9% 100 ML IVPB SCH (06:30)
[2019-02-03 06:44] LABS: BASO % 0.3 % (0.0-2.0); EOS % 0.3 % (0.0-4.0); HEMOGLOBIN 13.5 g/dL (12.0-18.0); LYMPH # 1.5 K/uL (1.0-4.3); LYMPH % 11.5 % (20.0-40.0); MEAN CELL VOLUME 89.8 fL (80.0-94.0); MEAN CORPUSCULAR HEMOGLOBIN 30.3 pg (27.0-31.0); MEAN CORPUSCULAR HGB CONC 33.7 g/dL (33.0-37.0); MEAN PLATELET VOLUME 8.1 fL (7.2-11.7); MONO # 1.1 K/uL (0.0-0.8); MONO % 8.7 % (0.0-10.0); NEUT # 10.2 K/uL (1.8-7.0); NEUT % 79.2 % (50.0-75.0); RBC 4.45 Mil/uL (4.40-5.90); RED CELL DISTRIBUTION WIDTH 13.5 % (11.5-14.5); WHITE BLOOD COUNT 12.9 K/uL (4.8-10.8)
[2019-02-03 07:41] LABS: ALB/GLOB RATIO 1.4 (1.0-2.1); ALBUMIN 3.8 g/dL (3.5-5.0); ALT/SGPT 272 U/L (21-72); AST/SGOT 73 U/L (17-59); BLOOD UREA NITROGEN 10 mg/dL (9-20); GFR NON-AFRICAN AMERICAN > 60
[2019-02-03 08:05] VITALS: BP 141/83; PULSE 77; TEMP 98.7; O2SAT 98
--- NOTE | 2019-02-03 08:14 | CP.PCM.PN ---
Subjective - Date & Time of Evaluation Date of Evaluation: 02/03/19 Time of Evaluation: 08:11 - Subjective Subjective: Surgery Progress note- Dr. Bullard Pt seen and examined. s/p Robotic Poonam POD1. tolerating regular diet. + OOB and ambulating. + flatus. denes f/c/cp/sob Objective - Vital Signs/Intake and Output Vital Signs (last 24 hours): Temp Pulse Resp BP Pulse Ox 98.7 F 77 20 141/83 98 02/03/19 08:04 02/03/19 08:04 02/03/19 08:04 02/03/19 08:04 02/03/19 08:04 Intake and Output: 02/03/19 02/03/19 06:59 18:59 Intake Total 1280 Output Total 700 Balance 580 - Medications Medications: Current Medications Acetaminophen (Tylenol 325mg Tab) 650 mg PO Q6 PRN PRN Reason: Fever >100.4 F Meropenem 1 gm/ Sodium (Chloride) 100 mls @ 100 mls/hr IVPB Q8H [facility]; Protocol Last Admin: 02/03/19 06:30 Dose: 100 mls/hr Lactated Ringer's (Lactated Ringer's) 1,000 mls @ 100 mls/hr IV .Q10H [facility] Last Admin: 02/03/19 06:30 Dose: 100 mls/hr Ondansetron HCl (Zofran Inj) 4 mg IVP Q6H PRN PRN Reason: Nausea/Vomiting Last Admin: 01/27/19 17:09 Dose: 4 mg Potassium Chloride (Klor-Con 10) 20 meq PO ONCE PRN PRN Reason: low K Last Admin: 02/01/19 15:07 Dose: 20 meq Saccharomyces Boulardii (Florastor) 250 mg PO BID [facility] Last Admin: 02/02/19 17:05 Dose: 250 mg - Labs Labs: 02/03/19 06:26 02/03/19 06:26 PT 11.4 SECONDS (9.7-12.2) 01/28/19 07:25 INR 1.0 01/28/19 07:25 APTT 32 SECONDS (21-34) 01/28/19 07:25 - Constitutional Appears: Non-toxic, No Acute Distress - Head Exam Head Exam: ATRAUMATIC - Eye Exam Eye Exam: EOMI. absent: Scleral icterus - ENT Exam ENT Exam: Mucous Membranes Moist - Respiratory Exam Respiratory Exam: NORMAL BREATHING PATTERN. absent: Accessory Muscle Use, Respiratory Distress - Cardiovascular Exam Cardiovascular Exam: REGULAR RHYTHM. absent: Bradycardia, Tachycardia - GI/Abdominal Exam GI & Abdominal Exam: Soft. absent: Distended, Firm, Guarding, Rigid, Tenderness - Neurological Exam Neurological Exam: Alert, Awake, Oriented x3 - Skin Skin Exam: Intact, Warm Assessment and Plan - Assessment and Plan (Free Text) Assessment: 48M s/p Robotic Cholecystectomy POD#1 Plan: - t.bili normalized - continue diet as tolerated - cleared for discharge from surgical stand point - follow up in clinic within 1 week - discussed w/ Dr. Bullard surgical attending PGY2
[2019-02-03] MEDS: Saccharomyces Boulardi 250 mg Cap PO SCH (09:33)
--- NOTE | 2019-02-06 10:47 | CARD ---
APPROVED REPORT Date of service: 01/26/2019 EKG Measurement Heart [id number] <Conclusion> Normal sinus rhythm Possible Left atrial enlargement Nonspecific ST abnormality Abnormal ECG
== END 2019-02-03 12:14 | disposition home or self-care (01) | DRG 418 ==
LOC: C.ER 23:18 → C.9E 01-27 02:50 → C.6T 01-27 03:36
PROVIDERS: ADMIT Internal Medicine Nephrology; ATTEND Internal Medicine Nephrology
PROC: 0F798DZ Dilation of Common Bile Duct with Intraluminal Device, Via Natural or Artificial Opening Endoscopic (ICD-10-PCS; 2019-01-31)
PROC: 0FT44ZZ Resection of Gallbladder, Percutaneous Endoscopic Approach (ICD-10-PCS; 2019-02-02)
PROC: 8E0W4CZ Robotic Assisted Procedure of Trunk Region, Percutaneous Endoscopic Approach (ICD-10-PCS; 2019-02-02)
PROC: 3E0T3BZ Introduction of Anesthetic Agent into Peripheral Nerves and Plexi, Percutaneous Approach (ICD-10-PCS; 2019-02-02)
PROC: 0DNU4ZZ Release Omentum, Percutaneous Endoscopic Approach (ICD-10-PCS; principal; 2019-02-02 13:15)
DX: K80.12 Calculus of gallbladder with acute and chronic cholecystitis without obstruction (principal); J90 Pleural effusion, not elsewhere classified; E78.00 Pure hypercholesterolemia, unspecified; I10 Essential (primary) hypertension; K76.0 Fatty (change of) liver, not elsewhere classified; K66.0 Peritoneal adhesions (postprocedural) (postinfection); K82.8 Other specified diseases of gallbladder; K83.8 Other specified diseases of biliary tract; R74.0 Nonspecific elevation of levels of transaminase and lactic acid dehydrogenase [LDH]; D18.00 Hemangioma unspecified site